=== PATIENT | male | born 1995 | race Caucasian/White ===

== ENCOUNTER 2018-03-25 18:26 | Emergency (ER) | payer BC, OTHER ==
--- NOTE | 2018-03-25 19:43 | ED ---
General Adult HPI - General Source: patient, police, RN notes reviewed Mode of arrival: ambulatory Limitations: no limitations <Mikal Nguyen - Last Filed: 03/25/18 22:23> <Jesus Ayala - Last Filed: 03/27/18 20:44> - General Chief complaint: Psychiatric Symptoms Stated complaint: mental Health Time Seen by Provider: 03/25/18 19:06 - History of Present Illness Initial comments: Patient's a 23-year-old male presented to the emergency room today by police for a psychiatric evaluation. Patient does admit to feeling somewhat down earlier today. He states he sent a text message to his . He states he does not remember what he's sent. Patient's did call police because in the text message it talked about him committing suicide. Police proceeded to his home picked him up and brought him here for psychiatric evaluation. Patient states he does not see a therapist or counselor. She is not on any medications. States he has no intentions of hurting himself. Since he has a 6- year-old son at home. Denies any homicidal thoughts or plans. Denies any visual or auditory hallucinations. Patient denies any other complaints. Patient denies any recent fever, chills, shortness of breath, chest pain, back pain, abdominal pain, nausea or vomiting, numbness or tingling, headaches or visual changes, or any other complaints. (Mikal Nguyen) - Related Data Home Medications Medication Instructions Recorded Confirmed No Known Home Medications 03/25/18 03/25/18 Allergies Allergy/AdvReac Type Severity Reaction Status Date / Time cephalexin monohydrate Allergy Rash/Hives Verified 03/25/18 19:29 [From Keflex] Review of Systems ROS Other: All systems not noted in ROS Statement are negative. <Mikal Nguyen - Last Filed: 03/25/18 22:23> ROS Other: All systems not noted in ROS Statement are negative. <Jesus Ayala - Last Filed: 03/27/18 20:44> ROS Statement: Those systems with pertinent positive or pertinent negative responses have been documented in the HPI. Past Medical History Past Medical History: No Reported History, Osteoarthritis (OA) History of Any Multi-Drug Resistant Organisms: None Reported Additional Past Surgical History / Comment(s): bilateral leg rods, osteogenisis imperfecta Past Psychological History: No Psychological Hx Reported Smoking Status: Never smoker Past Alcohol Use History: None Reported Past Drug Use History: None Reported <Mikal Nguyen - Last Filed: 03/25/18 22:23> General Exam Limitations: no limitations <Cory Nguyenony - Last Filed: 03/25/18 22:23> <JamieJesus Anam - Last Filed: 03/27/18 20:44> - General Exam Comments Initial Comments: General: The patient is awake and alert, in no distress, and does not appear acutely ill. Eye: Pupils are equal, round and reactive to light, extra-ocular movements are intact. No nystagmus. There is normal conjunctiva bilaterally. No signs of icterus. Ears, nose, mouth and throat: There are moist mucous membranes and no oral lesions. Neck: The neck is supple, there is no tenderness or JVD. Cardiovascular: There is a regular rate and rhythm. No murmur, rub or gallop is appreciated. Respiratory: Lungs are clear to auscultation, respirations are non-labored, breath sounds are equal. No wheezes, stridor, rales, or rhonchi. Musculoskeletal: Normal ROM, no tenderness. Strength 5/5. Sensation intact. Pulses equal bilaterally 2+. Neurological: A&O x 3. CN II-XII intact, There are no obvious motor or sensory deficits. Coordination appears grossly intact. Speech is normal. Skin: Skin is warm and dry and no rashes or lesions are noted. Psychiatric: Cooperative (Mikal Nguyen) Vital Signs 03/25/18 03/25/18 03/25/18 18:39 19:09 22:22 Temperature 99.9 F H Pulse Rate 100 Respiratory 18 18 16 Rate Blood Pressure 133/85 O2 Sat by Pulse 97 Oximetry 03/25/18 03/25/18 03/26/18 23:34 23:59 05:00 Temperature Pulse Rate Respiratory 16 18 18 Rate Blood Pressure O2 Sat by Pulse Oximetry 03/26/18 03/26/18 03/26/18 06:35 07:17 08:37 Temperature 97.2 F L Pulse Rate 74 Respiratory 17 18 19 Rate Blood Pressure 111/54 O2 Sat by Pulse 98 Oximetry 03/26/18 03/26/18 11:23 12:35 Temperature 97.9 F 97.9 F Pulse Rate 95 82 Respiratory 16 18 Rate Blood Pressure 117/56 118/56 O2 Sat by Pulse 98 98 Oximetry Medical Decision Making <Mikal Nguyen - Last Filed: 03/25/18 22:23> - Lab Data Result diagrams: 03/25/18 22:21 03/25/18 22:21 <Jesus Ayala - Last Filed: 03/27/18 20:44> - Medical Decision Making Patient's been seen here the emergency room by [facility]. Recommended patient be admitted inpatient. Patient was petitioned and seen by attending physician Dr. Ayala who completed cert. Patient will be transferred to an inpatient facility. (Mikal Nguyen) Resident/PA attestation: I, Dr. Jesus Ayala, personally saw and examined the patient. I have reviewed and agree with the resident/PA findings, including all diagnostic interpretations and treatment plans as written unless otherwise stated. I was present for the jj portions of any procedures performed and inclusive time noted for any critical care statement. (Jesus Ayala) - Lab Data Lab Results 03/25/18 03/25/18 03/25/18 Range/Units 21:15 21:15 22:21 WBC 9.6 (3.8-10.6) k/uL RBC 5.22 (4.30-5.90) m/uL Hgb 15.2 (13.0-17.5) gm/dL Hct 45.4 (39.0-53.0) % MCV 87.0 (80.0-100.0) fL MCH 29.1 (25.0-35.0) pg MCHC 33.5 (31.0-37.0) g/dL RDW 13.4 (11.5-15.5) % Plt Count 256 (150-450) k/uL Neutrophils % 67 % Lymphocytes % 25 % Monocytes % 5 % Eosinophils % 1 % Basophils % 0 % Neutrophils # 6.5 (1.3-7.7) k/uL Lymphocytes # 2.4 (1.0-4.8) k/uL Monocytes # 0.4 (0-1.0) k/uL Eosinophils # 0.1 (0-0.7) k/uL Basophils # 0.0 (0-0.2) k/uL Sodium (137-145) mmol/L Potassium (3.5-5.1) mmol/L Chloride (98-107) mmol/L Carbon Dioxide (22-30) mmol/L Anion Gap mmol/L BUN (9-20) mg/dL Creatinine (0.66-1.25) mg/dL Est GFR (CKD-EPI)AfAm (>60 ml/min/1.73 sqM) Est GFR (CKD-EPI)NonAf (>60 ml/min/1.73 sqM) Glucose (74-99) mg/dL Calcium (8.4-10.2) mg/dL Total Bilirubin (0.2-1.3) mg/dL AST (17-59) U/L ALT (21-72) U/L Alkaline Phosphatase (38-126) U/L Total Protein (6.3-8.2) g/dL Albumin (3.5-5.0) g/dL Urine Color Yellow Urine Appearance Clear (Clear) Urine pH 6.5 (5.0-8.0) Ur Specific [place] 1.022 (1.001-1.035) Urine Protein Negative (Negative) Urine Glucose (UA) Negative (Negative) Urine Ketones Negative (Negative) Urine Blood Negative (Negative) Urine Nitrite Negative (Negative) Urine Bilirubin Negative (Negative) Urine Urobilinogen <2.0 (<2.0) mg/dL Ur Leukocyte Esterase Negative (Negative) Urine Opiates Screen Not Detected (NotDetected) Ur Oxycodone Screen Not Detected (NotDetected) Urine Methadone Screen Not Detected (NotDetected) Ur Propoxyphene Screen Not Detected (NotDetected) Ur Barbiturates Screen Not Detected (NotDetected) U Tricyclic Antidepress Not Detected (NotDetected) Ur Phencyclidine Scrn Not Detected (NotDetected) Ur Amphetamines Screen Not Detected (NotDetected) U Methamphetamines Scrn Not Detected (NotDetected) U Benzodiazepines Scrn Not Detected (NotDetected) Urine Cocaine Screen Not Detected (NotDetected) U Marijuana (THC) Screen Not Detected (NotDetected) 03/25/18 Range/Units 22:21 WBC (3.8-10.6) k/uL RBC (4.30-5.90) m/uL Hgb (13.0-17.5) gm/dL Hct (39.0-53.0) % MCV (80.0-100.0) fL MCH (25.0-35.0) pg MCHC (31.0-37.0) g/dL RDW (11.5-15.5) % Plt Count (150-450) k/uL Neutrophils % % Lymphocytes % % Monocytes % % Eosinophils % % Basophils % % Neutrophils # (1.3-7.7) k/uL Lymphocytes # (1.0-4.8) k/uL Monocytes # (0-1.0) k/uL Eosinophils # (0-0.7) k/uL Basophils # (0-0.2) k/uL Sodium 140 (137-145) mmol/L Potassium 4.1 (3.5-5.1) mmol/L Chloride 108 H (98-107) mmol/L Carbon Dioxide 26 (22-30) mmol/L Anion Gap 6 mmol/L BUN 12 (9-20) mg/dL Creatinine 0.80 (0.66-1.25) mg/dL Est GFR (CKD-EPI)AfAm >90 (>60 ml/min/1.73 sqM) Est GFR (CKD-EPI)NonAf >90 (>60 ml/min/1.73 sqM) Glucose 91 (74-99) mg/dL Calcium 9.1 (8.4-10.2) mg/dL Total Bilirubin 0.4 (0.2-1.3) mg/dL AST 20 (17-59) U/L ALT 34 (21-72) U/L Alkaline Phosphatase 73 (38-126) U/L Total Protein 5.8 L (6.3-8.2) g/dL Albumin 3.5 (3.5-5.0) g/dL Urine Color Urine Appearance (Clear) Urine pH (5.0-8.0) Ur Specific [place] (1.001-1.035) Urine Protein (Negative) Urine Glucose (UA) (Negative) Urine Ketones (Negative) Urine Blood (Negative) Urine Nitrite (Negative) Urine Bilirubin (Negative) Urine Urobilinogen (<2.0) mg/dL Ur Leukocyte Esterase (Negative) Urine Opiates Screen (NotDetected) Ur Oxycodone Screen (NotDetected) Urine Methadone Screen (NotDetected) Ur Propoxyphene Screen (NotDetected) Ur Barbiturates Screen (NotDetected) U Tricyclic Antidepress (NotDetected) Ur Phencyclidine Scrn (NotDetected) Ur Amphetamines Screen (NotDetected) U Methamphetamines Scrn (NotDetected) U Benzodiazepines Scrn (NotDetected) Urine Cocaine Screen (NotDetected) U Marijuana (THC) Screen (NotDetected) Disposition Is patient prescribed a controlled substance at d/c from ED?: No Time of Disposition: 22:16 <Mikal Nguyen - Last Filed: 03/25/18 22:23> <Jesus Ayala - Last Filed: 03/27/18 20:44> Clinical Impression: Suicidal ideation Disposition: TRANSFER TO PSYCH HOSP/UNIT Condition: Stable Referrals: Hira Ward MD [Primary Care Provider] - 1-2 days
[2018-03-25 21:57] LABS: Amphetamine Screen,Urine Not Detected (NotDetected); Barbiturate Screen,Urine Not Detected (NotDetected); Benzodiazepines Screen,Urine Not Detected (NotDetected); Cocaine Screen,Urine Not Detected (NotDetected); Methadone Screen, Urine Not Detected (NotDetected); Opiate Screen,Urine Not Detected (NotDetected); Oxycodone Screen, Urine Not Detected (NotDetected); Phencyclidine Screen,Urine Not Detected (NotDetected); Tricyclic Antidepressant,Urine Not Detected (NotDetected); Urn Cannabinoid Scrn Not Detected (NotDetected)
[2018-03-25 22:34] LABS: Appearance,Urine Clear (Clear); Bilirubin,Urine Negative (Negative); Blood,Urine Negative (Negative); Color,Urine Yellow; Glucose,Urine (UA) Negative (Negative); Ketones,Urine Negative (Negative); Leukocyte Esterase,Urine Negative (Negative); Nitrite,Urine Negative (Negative); PH, Urine 6.5 (5.0-8.0); Protein,Urine Negative (Negative); Specific Gravity,Urine 1.022 (1.001-1.035); Urobilinogen,Urine <2.0 mg/dL (<2.0)
[2018-03-25 22:59] LABS: Basophils % (A) 0 %; Eosinophils # (A) 0.1 k/uL (0-0.7); Eosinophils % (A) 1 %; HCT 45.4 % (39.0-53.0); HGB 15.2 gm/dL (13.0-17.5); Lymphocytes # (A) 2.4 k/uL (1.0-4.8); Lymphocytes % (A) 25 %; MCH 29.1 pg (25.0-35.0); MCHC 33.5 g/dL (31.0-37.0); Mean Platelet Volume 7.4; Monocytes # (A) 0.4 k/uL (0-1.0); Monocytes % (A) 5 %; Neutrophils # (A) 6.5 k/uL (1.3-7.7); Neutrophils % (A) 67 %; Platelet Count 256 k/uL (150-450); RBC 5.22 m/uL (4.30-5.90); RDW 13.4 % (11.5-15.5); WBC 9.6 k/uL (3.8-10.6)
[2018-03-25 23:08] LABS: ALT 34 U/L (21-72); AST 20 U/L (17-59); Albumin 3.5 g/dL (3.5-5.0); Alkaline Phosphatase 73 U/L (38-126); Anion Gap 6 mmol/L; Blood Urea Nitrogen 12 mg/dL (9-20); Calcium 9.1 mg/dL (8.4-10.2); Carbon Dioxide 26 mmol/L (22-30); Chloride 108 mmol/L (98-107); Glucose 91 mg/dL (74-99); Potassium 4.1 mmol/L (3.5-5.1); Sodium 140 mmol/L (137-145); Total Bilirubin 0.4 mg/dL (0.2-1.3); Total Protein 5.8 g/dL (6.3-8.2)
[2018-03-26 11:25] VITALS: TEMP 97.9
[2018-03-26 12:44] VITALS: BP 118/56; PULSE 82; RESP 18
== END 2018-03-26 12:35 ==
LOC: EC 18:26
DX: R45.851 Suicidal ideations (principal); Z88.1 Allergy status to other antibiotic agents
CPT/HCPCS: 36415; 80053; 80306; 81003; 82075; 85025; 99284

== ENCOUNTER → 2018-05-15 | Outpatient (CLI) | payer OTHER ==
--- NOTE | 2018-05-15 12:33 | XR ---
Right hand and right wrist HISTORY: Right hand and wrist pain, trauma 3 views of the right hand and 4 views of the right wrist Bone mineralization, joint spaces and alignment are maintained. IMPRESSION: No fracture or dislocation.
== END | disposition home or self-care (01) ==
LOC: RADXRMAIN 10:24
PROVIDERS: ATTEND Emergency Medicine
DX: M65.841 Other synovitis and tenosynovitis, right hand (principal)

== ENCOUNTER 2018-06-20 21:33 | Emergency (ER) | payer BC ==
[2018-06-20 23:05] LABS: HCT 44.8 % (39.0-53.0); HGB 14.9 gm/dL (13.0-17.5); MCH 29.9 pg (25.0-35.0); MCHC 33.2 g/dL (31.0-37.0); Mean Platelet Volume 7.7; Platelet Count 194 k/uL (150-450); RBC 4.98 m/uL (4.30-5.90); RDW 13.5 % (11.5-15.5); WBC 8.2 k/uL (3.8-10.6)
[2018-06-20 23:20] LABS: Amphetamine Screen,Urine Not Detected (NotDetected); Barbiturate Screen,Urine Not Detected (NotDetected); Benzodiazepines Screen,Urine Not Detected (NotDetected); Cocaine Screen,Urine Not Detected (NotDetected); Methadone Screen, Urine Not Detected (NotDetected); Opiate Screen,Urine Not Detected (NotDetected); Oxycodone Screen, Urine Not Detected (NotDetected); Phencyclidine Screen,Urine Not Detected (NotDetected); Tricyclic Antidepressant,Urine Not Detected (NotDetected); Urn Cannabinoid Scrn Not Detected (NotDetected)
[2018-06-20 23:23] LABS: ALT 34 U/L (21-72); AST 20 U/L (17-59); Albumin 3.7 g/dL (3.5-5.0); Alkaline Phosphatase 66 U/L (38-126); Anion Gap 7 mmol/L; Blood Urea Nitrogen 14 mg/dL (9-20); Calcium 9.2 mg/dL (8.4-10.2); Carbon Dioxide 25 mmol/L (22-30); Chloride 107 mmol/L (98-107); Glucose 145 mg/dL (74-99); Potassium 3.7 mmol/L (3.5-5.1); Sodium 139 mmol/L (137-145); Total Bilirubin 0.6 mg/dL (0.2-1.3)
--- NOTE | 2018-06-21 00:36 | ED ---
Psych HPI - General Chief Complaint: Psychiatric Symptoms Stated Complaint: mental health Time Seen by Provider: 06/20/18 21:54 Source: patient Mode of arrival: ambulatory - History of Present Illness Initial Comments: Sherwin is a 23-year-old male with a psychiatric history who is prescribed Abilify which he reports he has not been compliant with. Patient is brought to the ED today in police custody for evaluation of auditory hallucinations and suicidal thoughts. Patient reports that he has not been combined with his home medications. He reports that for the past few days he has began hearing voices. He reports that these voices have been very distressing and is been having suicidal thoughts. - Related Data Home Medications Medication Instructions Recorded Confirmed ARIPiprazole [Abilify] 10 mg PO DAILY 06/20/18 06/20/18 Allergies Allergy/AdvReac Type Severity Reaction Status Date / Time cephalexin monohydrate Allergy Rash/Hives Verified 06/20/18 22:06 [From [facility]] Review of Systems ROS Statement: Those systems with pertinent positive or pertinent negative responses have been documented in the HPI. ROS Other: All systems not noted in ROS Statement are negative. Past Medical History Past Medical History: No Reported History, Osteoarthritis (OA) History of Any Multi-Drug Resistant Organisms: None Reported Additional Past Surgical History / Comment(s): bilateral leg rods, osteogenisis imperfecta Past Psychological History: No Psychological Hx Reported Smoking Status: Never smoker Past Alcohol Use History: None Reported Past Drug Use History: None Reported General Exam - General Exam Comments Initial Comments: Physical Exam GENERAL: Patient is well-developed and well-nourished. Patient is nontoxic and well- hydrated and is in no distress. HENT: Normocephalic, Atraumatic. Poor dentition EYES: PERRL, EOMI PULMONARY: Unlabored respirations. No audible rales rhonchi or wheezing was noted. CARDIOVASCULAR: There is a regular rate and rhythm without any murmurs gallops or rubs. ABDOMEN: Soft and nontender with normal bowel sounds. SKIN: Skin is clear with no lesions or rashes and otherwise unremarkable. : Deferred NEUROLOGIC: Patient is alert and oriented x3. Moving all extremities spontaneously MUSCULOSKELETAL: Normal extremities with adequate strength and full range of motion. No lower extremity swelling or edema. No calf tenderness. PSYCHIATRIC: Depressed, suicidal Limitations: no limitations Limitations: no limitations Course Vital Signs 06/20/18 06/21/18 21:38 06:45 Temperature 97.8 F Pulse Rate 85 86 Respiratory 16 14 Rate Blood Pressure 133/89 116/69 O2 Sat by Pulse 99 98 Oximetry Medical Decision Making - Medical Decision Making Patient seen and evaluated, history is obtained from the patient, his significant other as well as the cook chili who brought him in Patient has a history of psychiatric illness, was hospitalized for approximately 2 weeks in January per the significant other at bedside. Patient calm and cooperative stating that he having auditory hallucinations and suicidal thoughts Patient petitioned by significant other A workup was ordered, EPS was consulted for evaluation EPS recommends inpatient evaluation. Patient is medically cleared for psychiatric hospitalization The patient rested comfortably throughout the night awaiting transfer - Lab Data Result diagrams: 06/20/18 22:46 06/20/18 22:46 Lab Results 06/20/18 06/20/18 06/20/18 Range/Units 22:46 22:46 22:46 WBC 8.2 (3.8-10.6) k/uL RBC 4.98 (4.30-5.90) m/uL Hgb 14.9 (13.0-17.5) gm/dL Hct 44.8 (39.0-53.0) % MCV 90.0 (80.0-100.0) fL MCH 29.9 (25.0-35.0) pg MCHC 33.2 (31.0-37.0) g/dL RDW 13.5 (11.5-15.5) % Plt Count 194 (150-450) k/uL Sodium 139 (137-145) mmol/L Potassium 3.7 (3.5-5.1) mmol/L Chloride 107 (98-107) mmol/L Carbon Dioxide 25 (22-30) mmol/L Anion Gap 7 mmol/L BUN 14 (9-20) mg/dL Creatinine 0.89 (0.66-1.25) mg/dL Est GFR (CKD-EPI)AfAm >90 (>60 ml/min/1.73 sqM) Est GFR (CKD-EPI)NonAf >90 (>60 ml/min/1.73 sqM) Glucose 145 H (74-99) mg/dL Calcium 9.2 (8.4-10.2) mg/dL Total Bilirubin 0.6 (0.2-1.3) mg/dL AST 20 (17-59) U/L ALT 34 (21-72) U/L Alkaline Phosphatase 66 (38-126) U/L Total Protein 6.0 L (6.3-8.2) g/dL Albumin 3.7 (3.5-5.0) g/dL Urine Opiates Screen Not Detected (NotDetected) Ur Oxycodone Screen Not Detected (NotDetected) Urine Methadone Screen Not Detected (NotDetected) Ur Propoxyphene Screen Not Detected (NotDetected) Ur Barbiturates Screen Not Detected (NotDetected) U Tricyclic Antidepress Not Detected (NotDetected) Ur Phencyclidine Scrn Not Detected (NotDetected) Ur Amphetamines Screen Not Detected (NotDetected) U Methamphetamines Scrn Not Detected (NotDetected) U Benzodiazepines Scrn Not Detected (NotDetected) Urine Cocaine Screen Not Detected (NotDetected) U Marijuana (THC) Screen Not Detected (NotDetected) Disposition Clinical Impression: Depression, Suicidal ideation, Psychosis Disposition: TRANSFER TO PSYCH HOSP/UNIT Is patient prescribed a controlled substance at d/c from ED?: No Referrals: Adithya Borrero DO [Primary Care Provider] - 1-2 days
[2018-06-21 09:22] VITALS: BP 123/69; PULSE 88; RESP 18; TEMP 98.3
== END 2018-06-21 09:22 ==
LOC: EC 21:33
DX: F29 Unspecified psychosis not due to a substance or known physiological condition (principal); F32.9 Major depressive disorder, single episode, unspecified; R45.851 Suicidal ideations; Z79.899 Other long term (current) drug therapy; Z88.1 Allergy status to other antibiotic agents
CPT/HCPCS: 36415; 80053; 80306; 85027; 99285

== ENCOUNTER 2018-11-27 08:42 | Observation (INO) | payer BC ==
[2018-11-27] MEDS ORDERED: SODIUM CHLORIDE 0.9% 500 ML 500 ML IV STA (08:48)
--- NOTE | 2018-11-27 08:51 | ED ---
General Adult HPI - General Stated complaint: Overdose Time Seen by Provider: 11/27/18 08:44 - History of Present Illness Initial comments: Dictation was produced using [employer] dictation software. please excuse any grammatical, word or spelling errors. Chief Complaint: 23-year-old male past medical history of schizophrenia presents after suicidal attempt. History of Present Illness: Patient is a 23-year-old male. Approximately 6:30 AM patient took between 10 and 15 pills of Abilify. this is his usual medication. Patient states he wants to kill himself because of too many personal stress. Patient denies any auditory or visual hallucinations. Patient denies any feeling like somebody is out to get him. Patient is severely depressed. Patient has been admitted to the hospital psychiatric [facility] at least 2-3 other times. Denies any complaints at this time. EMS reports that patient had stable vital signs upon initial evaluation. He did report a lot of suicidal comments. The ROS documented in this emergency department record has been reviewed and confirmed by me. Those systems with pertinent positive or negative responses have been documented in the HPI. All other systems are other negative and/or noncontributory. PHYSICAL EXAM: General Impression: Alert and oriented x3, not in acute distress HEENT: Normocephalic atraumatic, extra-ocular movements intact, pupils equal and reactive to light bilaterally, mucous membranes moist. Cardiovascular: Heart regular rate and rhythm, S1&S2 audible, no murmurs, rubs or gallops Chest: Lungs clear to auscultation bilaterally, no rhonchi, no wheeze, no rales Abdomen: Bowel sounds present, abdomen soft, non-tender, non-distended, no organomegaly Musculoskeletal: Pulses present and equal in all extremities, no peripheral edema Motor: no focal deficits noted Neurological: CN II-XII grossly intact, no focal motor or sensory deficits noted Skin: Intact with no visualized rashes Psych: Depressed mood, nontender and show speech ED course: 23-year-old male presents with suicidal attempt. At approximately 6:30 AM he took 5015 tabs of his Abilify medication in an attempt to overdose. Vital signs upon arrival are within acceptable limits. [facility] which was contacted recommend laboratory evaluation an 8 hour observation for medical clearance.Laboratory evaluation obtained. CBC, metabolic panel, urine drug screen is unremarkable. Patient observed in emergency department. He has stable vital signs. Upon reevaluation however he is very sleepy, however arousable which is likely secondary to the Abilify. Given patient's degree of symptoms we will plan to have coppola admitted under cardiac monitoring for signs of possible worsening overdose. The patient should be on consult given that patient had suicidal attempt. EKG interpretation: Ventricular rate 81, VT interval 176, normal sinus rhythm, QRS 94, QTC 439. No VT prolongation, no QTC prolongation, no ST or T-wave changes noted. . Overall, this EKG is unremarkable - Related Data Home Medications Medication Instructions Recorded Confirmed ARIPiprazole [Abilify] 10 mg PO DAILY 06/20/18 06/20/18 Allergies Allergy/AdvReac Type Severity Reaction Status Date / Time cephalexin monohydrate Allergy Rash/Hives Verified 06/20/18 22:06 [From [facility]] Review of Systems ROS Statement: Those systems with pertinent positive or pertinent negative responses have been documented in the HPI. ROS Other: All systems not noted in ROS Statement are negative. Past Medical History Past Medical History: No Reported History, Osteoarthritis (OA) History of Any Multi-Drug Resistant Organisms: None Reported Additional Past Surgical History / Comment(s): bilateral leg rods, osteogenisis imperfecta Past Psychological History: No Psychological Hx Reported Smoking Status: Never smoker Past Alcohol Use History: None Reported Past Drug Use History: None Reported Course Vital Signs 11/27/18 11/27/18 09:00 09:38 Temperature 98.5 F Pulse Rate 90 71 Respiratory 16 18 Rate Blood Pressure 123/87 O2 Sat by Pulse 96 96 Oximetry Medical Decision Making - Lab Data Result diagrams: 11/27/18 09:15 11/27/18 09:15 Lab Results 11/27/18 11/27/18 11/27/18 Range/Units 09:15 09:15 09:15 WBC 7.3 (3.8-10.6) k/uL RBC 5.29 (4.30-5.90) m/uL Hgb 15.4 (13.0-17.5) gm/dL Hct 47.7 (39.0-53.0) % MCV 90.1 (80.0-100.0) fL MCH 29.1 (25.0-35.0) pg MCHC 32.3 (31.0-37.0) g/dL RDW 14.4 (11.5-15.5) % Plt Count 258 (150-450) k/uL Neutrophils % 67 % Lymphocytes % 24 % Monocytes % 5 % Eosinophils % 2 % Basophils % 1 % Neutrophils # 4.9 (1.3-7.7) k/uL Lymphocytes # 1.7 (1.0-4.8) k/uL Monocytes # 0.4 (0-1.0) k/uL Eosinophils # 0.1 (0-0.7) k/uL Basophils # 0.0 (0-0.2) k/uL Sodium 141 (137-145) mmol/L Potassium 4.2 (3.5-5.1) mmol/L Chloride 104 (98-107) mmol/L Carbon Dioxide 28 (22-30) mmol/L Anion Gap 9 mmol/L BUN 14 (9-20) mg/dL Creatinine 0.94 (0.66-1.25) mg/dL Est GFR (CKD-EPI)AfAm >90 (>60 ml/min/1.73 sqM) Est GFR (CKD-EPI)NonAf >90 (>60 ml/min/1.73 sqM) Glucose 89 (74-99) mg/dL Calcium 9.5 (8.4-10.2) mg/dL Phosphorus 4.1 (2.5-4.5) mg/dL Magnesium 2.0 (1.6-2.3) mg/dL Total Bilirubin 0.6 (0.2-1.3) mg/dL AST 21 (17-59) U/L ALT 39 (21-72) U/L Alkaline Phosphatase 98 (38-126) U/L Total Protein 7.4 (6.3-8.2) g/dL Albumin 4.4 (3.5-5.0) g/dL Salicylates <1.0 mg/dL Urine Opiates Screen Not Detected (NotDetected) Ur Oxycodone Screen Not Detected (NotDetected) Urine Methadone Screen Not Detected (NotDetected) Ur Propoxyphene Screen Not Detected (NotDetected) Acetaminophen <10.0 ug/mL Ur Barbiturates Screen Not Detected (NotDetected) U Tricyclic Antidepress Not Detected (NotDetected) Ur Phencyclidine Scrn Not Detected (NotDetected) Ur Amphetamines Screen Not Detected (NotDetected) U Methamphetamines Scrn Not Detected (NotDetected) U Benzodiazepines Scrn Not Detected (NotDetected) Urine Cocaine Screen Not Detected (NotDetected) U Marijuana (THC) Screen Detected H (NotDetected) Serum Alcohol <10 mg/dL Disposition Clinical Impression: Overdose Disposition: ADMITTED IP TO THIS [facility] Condition: Fair Referrals: Adithya Borrero DO [Primary Care Provider] - 1-2 days Decision Time: 10:43
[2018-11-27 09:51] LABS: Basophils % (A) 1 %; Eosinophils # (A) 0.1 k/uL (0-0.7); Eosinophils % (A) 2 %; HCT 47.7 % (39.0-53.0); HGB 15.4 gm/dL (13.0-17.5); Lymphocytes # (A) 1.7 k/uL (1.0-4.8); Lymphocytes % (A) 24 %; MCH 29.1 pg (25.0-35.0); MCHC 32.3 g/dL (31.0-37.0); MCV 90.1 fL (80.0-100.0); Mean Platelet Volume 8.1; Monocytes # (A) 0.4 k/uL (0-1.0); Monocytes % (A) 5 %; Neutrophils # (A) 4.9 k/uL (1.3-7.7); Neutrophils % (A) 67 %; Platelet Count 258 k/uL (150-450); RBC 5.29 m/uL (4.30-5.90); RDW 14.4 % (11.5-15.5); WBC 7.3 k/uL (3.8-10.6)
[2018-11-27 10:23] LABS: Amphetamine Screen,Urine Not Detected (NotDetected); Barbiturate Screen,Urine Not Detected (NotDetected); Benzodiazepines Screen,Urine Not Detected (NotDetected); Cocaine Screen,Urine Not Detected (NotDetected); Methadone Screen, Urine Not Detected (NotDetected); Opiate Screen,Urine Not Detected (NotDetected); Oxycodone Screen, Urine Not Detected (NotDetected); Phencyclidine Screen,Urine Not Detected (NotDetected); Tricyclic Antidepressant,Urine Not Detected (NotDetected); Urn Cannabinoid Scrn Detected (NotDetected)
[2018-11-27 10:30] LABS: ALT 39 U/L (21-72); AST 21 U/L (17-59); Acetaminophen <10.0 ug/mL; Albumin 4.4 g/dL (3.5-5.0); Alcohol <10 mg/dL; Alkaline Phosphatase 98 U/L (38-126); Anion Gap 9 mmol/L; Blood Urea Nitrogen 14 mg/dL (9-20); Calcium 9.5 mg/dL (8.4-10.2); Carbon Dioxide 28 mmol/L (22-30); Chloride 104 mmol/L (98-107); Glucose 89 mg/dL (74-99); Phosphorus 4.1 mg/dL (2.5-4.5); Potassium 4.2 mmol/L (3.5-5.1); Salicylate <1.0 mg/dL; Sodium 141 mmol/L (137-145); Total Bilirubin 0.6 mg/dL (0.2-1.3); Total Protein 7.4 g/dL (6.3-8.2)
[2018-11-27] MEDS ORDERED: NALOXONE 0.4 MG/ML 1 ML VIAL IV PRN (10:44)
[2018-11-27] MEDS: SODIUM CHLORIDE 0.9% 1,000 ML IV SCH (12:41)
--- NOTE | 2018-11-27 19:28 | HP ---
HISTORY AND PHYSICAL DATE OF SERVICE: 11/27/2018 This 23-year-old gentleman who had a past medical history of multiple medical problems including DJD, history of imperfecta, depression, schizophrenia being followed by Dr. Lita Borrero in the outpatient setting apparently took 10-15 tablets of Abilify this morning at around 6:30, 10 mg Abilify. Subsequently, patient stated that patient wanted to kill himself and had suicidal ideations. Patient taken to [facility] and admitted to the hospital for further evaluation and treatment. The patient is found to be drowsy at this time and admitted to the medical floor for further evaluation and treatment. The urine THC was positive. Currently the patient unable to give a coherent history because the patient is stuporous. Most of the history taken from my discussion with staff and review of chart at this time. PAST MEDICAL HISTORY: Of osteogenesis imperfecta, history of adenoidectomy, tonsillectomy, depression, schizophrenia. MEDICATIONS ARE: Home medications are: Abilify 10 mg daily. ALLERGIES: KEFLEX. FAMILY HISTORY: History of coronary artery disease, diabetes, hypertension, myocardial infarction. Guzman's Palsy. SOCIAL HISTORY: History of alcohol, THC, previous history of smoking. REVIEW OF SYSTEMS: Could not be taken at length because the patient is stuporous state. PHYSICAL EXAM: Pulse 68, blood pressure 112/70, respiration 18, temperature 98.8, pulse ox 98% on room air. HEENT: Conjunctivae normal. Neck: No jugular venous distention. Cardiovascular: S1, S2 muffled. Respirations: Breath sounds diminished in the bases. A few scattered rhonchi and crackles. ABDOMEN: Soft, nontender. No mass palpable. LEGS: No edema. No swelling. NERVOUS SYSTEM: Higher functions as mentioned earlier. Otherwise, full exam is not possible. The pupils are normal. Skin: No ulcers. Joints: No active deforming arthropathy. LABS: CBC and CMP within normal limits. ASSESSMENT: 1. Change in mental status possible acute metabolic toxic encephalopathy possibly drug induced secondary to Abilify overdose. 2. Possible Abilify overdose with possible suicidal ideations. 3. Possible depression. 4. Osteogenesis imperfecta history. 5. History of migraine. 6. History of cellulitis. 7. History of schizophrenia. 8. History of nicotine dependence. 9. History of THC. 10.FULL CODE. RECOMMENDATIONS AND DISCUSSION: In this 23-year-old gentleman who presented with multiple complex medical issues, we will monitor the patient closely. Continue the current medications, management and symptomatic treatment. Neuro checks and we will hold the Abilify for now. Symptomatic treatment. IV fluids and psychiatric consultation. Once the patient's sensorium improves, the patient may be able to be transferred to the psych floor for further evaluation and treatment. Otherwise, prognosis guarded. Further recommendations to follow. A copy of dictation being forwarded to Dr. Lita Borrero who is the primary care physician. MMANDREAL / ALEXN: [id number] / MTDD
[2018-11-28 08:26] LABS: Basophils % (A) 0 %; Eosinophils # (A) 0.1 k/uL (0-0.7); Eosinophils % (A) 2 %; HCT 47.9 % (39.0-53.0); HGB 15.6 gm/dL (13.0-17.5); Lymphocytes # (A) 1.7 k/uL (1.0-4.8); Lymphocytes % (A) 24 %; MCH 28.8 pg (25.0-35.0); MCHC 32.5 g/dL (31.0-37.0); MCV 88.7 fL (80.0-100.0); Monocytes # (A) 0.4 k/uL (0-1.0); Monocytes % (A) 6 %; Neutrophils # (A) 4.6 k/uL (1.3-7.7); Neutrophils % (A) 66 %; Platelet Count 205 k/uL (150-450); RBC 5.41 m/uL (4.30-5.90); RDW 13.5 % (11.5-15.5)
[2018-11-28 08:35] LABS: Anion Gap 10 mmol/L; Blood Urea Nitrogen 12 mg/dL (9-20); Calcium 9.6 mg/dL (8.4-10.2); Carbon Dioxide 24 mmol/L (22-30); Chloride 107 mmol/L (98-107); Glucose 84 mg/dL (74-99); Potassium 4.6 mmol/L (3.5-5.1); Sodium 141 mmol/L (137-145)
--- NOTE | 2018-11-28 11:56 | P.CN ---
Psychiatric Consult - . Consult date: 11/28/18 Consult:: 11/27/18 14:18 questionable suicide attempt Assessment and Plan Assessment: Chief Complaint: 23-year-old male past medical history of schizophrenia presents after suicidal attempt. History of Present Illness: Patient is a 23-year-old male. Approximately 6:30 AM patient took between 10 and 15 pills of Abilify. this is his usual medication. Patient states he wants to kill himself because of too many personal stress. Patient denies any auditory or visual hallucinations. Patient denies any feeling like somebody is out to get him. Patient is severely depressed. Patient has been admitted to the hospital psychiatric [facility] at least 2-3 other times. Denies any complaints at this time. EMS reports that patient had stable vital signs upon initial evaluation. He did report a lot of suicidal comments. ED course: 23-year-old male presents with suicidal attempt. At approximately 6:30 AM he took 10-15 tabs of his Abilify medication in an attempt to overdose. Vital signs upon arrival are within acceptable limits. Pleasant which was contacted recommend laboratory evaluation an 8 hour observation for medical clearance.Laboratory evaluation obtained. CBC, metabolic panel, urine drug screen is unremarkable. Patient observed in emergency department. He has stable vital signs. Upon reevaluation however he is very sleepy, however arousable which is likely secondary to the Abilify. Given patient's degree of symptoms was admitted under cardiac monitoring for signs of possible worsening overdose. EKG interpretation: Ventricular rate 81, MI interval 176, normal sinus rhythm, QRS 94, QTC 439. No MI prolongation, no QTC prolongation, no ST or T-wave changes noted. . Overall, this EKG is unremarkable Psychopharmacology of Abilify: It has a half life 96 hours someone is not out of the ruiz for at least 3 more days and can affect his QTC since it is lipophilic, I was the primary utilities service investigator and clinical trials regarding this antipsychotic from [facility] [place]. - Related Data Home Medications Medication Instructions Recorded Confirmed ARIPiprazole [Abilify] 10 mg PO DAILY 06/20/18 06/20/18 Allergies Allergy/AdvReac Type Severity Reaction Status Date / Time cephalexin monohydrate Allergy Rash/Hives Verified 06/20/18 22:06 [From [employer]] Past Medical History Past Medical History: No Reported History, Osteoarthritis (OA) History of Any Multi-Drug Resistant Organisms: None Reported Additional Past Surgical History / Comment(s): bilateral leg rods, osteogenisis imperfecta Past Psychological History: schizoaffective disorder Smoking Status: Never smoker Past Alcohol Use History: None Reported Past Drug Use History: None Reported Mental Status Examination - this is a 23-year-old male who was accompanied by his at bedside. He is dressed in gown and laying in bed and is cooperative and responsive to questions. His speech and language are spontaneous. Attitude and behavior is cooperative. Mood is depressed anxious fearful and hopelessness. Affect is flat and blunted. Orientation is to person place time and situation whereby he admitted that he took an overdose do to he and his are in the middle of havinga discussion about divorce. Thought content is within normal.risk factors he is suicidal and had a plan and intent to carry out. Perception is within normal limits. Thought processes concrete circumstantial and tangential nature. His concentration and attention span is impaired per observation and interview with the patient. Recent memory and remote memory are within normal intelligence is below average. Judgment is poor. Insight is poor. Psychiatric impression: A application, clinical certification for involuntary psychiatric hospitalization is filled out and he needs to be transferred to the psychiatric unit so a second clinical service filled out and not allow him to sign in. When he usually checks in the hospital he stays about 7 days and stopped taking his medicine. diagnosis schizoaffective disorder. Thank you for the consult Ivan Lopez D.O. PhD (1) Schizoaffective disorder Current Visit: Yes Status: Acute Priority: High Code(s): F25.9 - SCHIZOAFFECTIVE DISORDER, UNSPECIFIED SNOMED Code(s): 64627587 (2) Overdose Current Visit: Yes Status: Acute Code(s): T50.901A - POISONING BY UNSP DRUG/MEDS/BIOL SUBST, ACCIDENTAL, INIT SNOMED Code(s): 49865005 Time with Patient: Less than 30
[2018-11-28 14:12] VITALS: BMI 34.4
[2018-11-28] MEDS: SODIUM CHLORIDE 0.9% 1,000 ML IV SCH (16:19)
[2018-11-28 20:31] VITALS: BP 164/82; PULSE 80; RESP 16; TEMP 97.9
--- NOTE | 2018-11-28 22:41 | DS ---
DISCHARGE SUMMARY DATE OF SERVICE: 11/28/2018. FINAL DIAGNOSES: 1. Change in mental status, possible acute metabolic toxic encephalopathy possibly secondary to drug induced secondary to Abilify overdose. 2. Possible Abilify overdose with suicidal ideations and depression. 4. History of migraines. 5. History of cellulitis. 6. History of schizophrenia. 7. History of nicotine dependence. 8. History of THC. 9. FULL CODE. DISCHARGE DISPOSITION: The patient is being discharged in stable condition with guarded prognosis. HISTORY OF PRESENT ILLNESS: This 23-year-old gentleman who presented with multiple medical problems being followed by Dr. Lita Borrero, admitted for suicidal ideations. The patient's change in mental status, treated symptomatically, improved significantly. PHYSICAL EXAMINATION: On exam, vital signs stable. Cardiovascular: S1, S2. Abdomen soft. Nervous system: No focal deficits. The patient is certified and the patient will be transferred to inpatient psych floor for further evaluation. Medically cleared. Continued management. Please refer to the MAR for current medications. MMODL / IJN: [id number] / MALENA
== END 2018-11-29 02:35 ==
LOC: EC 08:42 → 3SCARD 10:44 → 3NMEDONC 16:29
PROVIDERS: ADMIT Hospitalist; ATTEND Hospitalist
DX: R41.82 Altered mental status, unspecified (principal); R45.851 Suicidal ideations; F20.9 Schizophrenia, unspecified; F32.9 Major depressive disorder, single episode, unspecified; G43.909 Migraine, unspecified, not intractable, without status migrainosus; Q78.0 Osteogenesis imperfecta; Z79.899 Other long term (current) drug therapy; Z88.1 Allergy status to other antibiotic agents; Z86.59 Personal history of other mental and behavioral disorders; Z87.891 Personal history of nicotine dependence; Z87.2 Personal history of diseases of the skin and subcutaneous tissue; Z83.3 Family history of diabetes mellitus; Z82.49 Family history of ischemic heart disease and other diseases of the circulatory system; Z82.0 Family history of epilepsy and other diseases of the nervous system
CPT/HCPCS: 82075; 99285; 36415; 93005; 80053; 80048; 83735; 84100; 85025 ×2; 80306; 83520 ×2; 80320; G0378 ×4

== ENCOUNTER 2018-11-29 02:26 | Inpatient (IN) | payer BC, MEDICAID ==
[2018-11-29] MEDS ORDERED: MAG HYDROX/AL HYDROX/SIMETH 30 ML CUP PO PRN (03:23)
[2018-11-29] MEDS ORDERED: MAGNESIUM HYDROXIDE 2,400 MG/10 ML CUP PO PRN (03:23)
[2018-11-29] MEDS ORDERED: ACETAMINOPHEN TAB 325 MG TAB PO PRN (03:23)
[2018-11-29] MEDS ORDERED: LORazepam 1 MG TAB PO PRN (03:23)
[2018-11-29] MEDS ORDERED: ZIPRASIDONE 20 MG VIAL IM PRN (03:23)
[2018-11-29 03:25] VITALS: BMI 35.2
--- NOTE | 2018-11-29 17:59 | P.CONS ---
History of Present Illness - History of Present Illness this is a pleasant 23 years old male with no significant past medical history although he has some history of migraine before however he denies significant history.patient was admitted to the [facility] for resuscitation and acute psychosis. Medical consult has been asked for medical management. Patient denies chest pain or dyspnea. No change in urine or bowel habits. No fever. No abdominal pain. No nausea vomiting. He tolerates diet well. Review of Systems CONSTITUTIONAL: No fever, no malaise, no fatigue. HEENT: No recent visual problems or hearing problems. Denied any sore throat. CARDIOVASCULAR: No orthopnea, PND, no palpitations, no syncope. PULMONARY: No shortness of breath, no cough, no hemoptysis. GASTROINTESTINAL: No diarrhea, no nausea, no vomiting, no abdominal pain. Normoactive bowel sounds. NEUROLOGICAL: No headaches, no weakness, no numbness. HEMATOLOGICAL: Denies any bleeding or petechiae. GENITOURINARY: Denies any burning micturition, frequency, or urgency. MUSCULOSKELETAL/RHEUMATOLOGICAL: Denies any joint pain, swelling, or any muscle pain. ENDOCRINE: Denies any polyuria or polydipsia. Past Medical History Past Medical History: No Reported History, Osteoarthritis (OA) Additional Past Medical History / Comment(s): Osteogenesis imperfecta, migraines, multiple cellulitis bilateral legs, rods in bilat legs upper and lower legs History of Any Multi-Drug Resistant Organisms: None Reported Past Surgical History: Adenoidectomy, Tonsillectomy Additional Past Surgical History / Comment(s): bilateral legs with rods, occipital nerve blocks Past Anesthesia/Blood Transfusion Reactions: Postoperative Nausea & Vomiting (PONV) Past Psychological History: Depression, Schizophrenia Additional Psychological History / Comment(s): Pt states he is suicidal. Pt states he has a plan for suicide but states "don't want to talk about it." He states d/t too much stress in his life. Pt resides at home with his spouse. He is independent. He works at [employer]. Smoking Status: Former smoker Past Alcohol Use History: Occasional Additional Past Alcohol Use History / Comment(s): Pt started smoking as a teen and quit about 2013. He drinks alcohol on occasion. Past Drug Use History: Marijuana Additional Drug Use History / Comment(s): Pt smokes marijuana occasionally. - Past Family History Father Family Medical History: Coronary Artery Disease (CAD), Diabetes Mellitus, Hypertension, Myocardial Infarction (RI) Additional Family Medical History / Comment(s): Father had his first Mi at the age of 33 yrs. He is bipolar. He has had Guzman's Palsey. Mother Family Medical History: Hypertension Additional Family Medical History / Comment(s): Migraines Medications and Allergies Home Medications Medication Instructions Recorded Confirmed Type No Known Home Medications 11/29/18 11/29/18 History Allergies Allergy/AdvReac Type Severity Reaction Status Date / Time cephalexin monohydrate Allergy Rash/Hives Verified 11/29/18 03:58 [From [employer]] Physical Exam Vitals: Vital Signs Temp Pulse Resp BP Pulse Ox 11/29/18 03:18 97.1 F L 100 14 120/64 97 Intake and Output 11/29/18 11/29/18 11/29/18 06:59 14:59 22:59 Other: Weight 114.305 kg GENERAL: The patient is alert and oriented x3, not in any acute distress. Well developed, well nourished. HEENT: Pupils are round and equally reacting to light. EOMI. No scleral icterus. No conjunctival pallor. Normocephalic, atraumatic. No pharyngeal erythema. No thyromegaly. CARDIOVASCULAR: S1 and S2 present. No murmurs, rubs, or gallops. PULMONARY: Chest is clear to auscultation, no wheezing or crackles. ABDOMEN: Soft, nontender, nondistended, normoactive bowel sounds. No palpable organomegaly. MUSCULOSKELETAL: No joint swelling or deformity. EXTREMITIES: No cyanosis, clubbing, or pedal edema. NEUROLOGICAL: Gross neurological examination did not reveal any focal deficits. SKIN: No rashes. Results Labs: Abnormal Lab Results - Last 24 Hours (Table) 11/29/18 Range/Units 10:38 TSH 0.223 L (0.465-4.680) mIU/L Assessment and Plan Assessment: -agitation and psychosis, management as per primary site team -History of osteoarthritis, not an active issue -History of migraine, not an active issue Plan: this is a pleasant 23 years old male who presents with psychosis and other psychiatric illnesses which is managed as per primary dissecting Labs and medication were reviewed.. Continue same treatment. Continue with symptomatic treatment. Resume home medication. Monitor lytes and vitals. DVT and GI prophylaxis. Further recommendations of the clinical course of the patient DVT prophylaxis: Subcutaneous heparin thank you for consulting us.
--- NOTE | 2018-11-29 19:37 | P.HP ---
Psychiatric H&P - . H&P Date: 11/29/18 History & Physical: Allergies Allergy/AdvReac Type Severity Reaction Status Date / Time cephalexin monohydrate Allergy Rash/Hives Verified 11/29/18 03:58 [From Keflex] Vital Signs Temp 97.1 F L 11/29/18 03:18 Pulse 100 11/29/18 03:18 Resp 14 11/29/18 03:18 BP 120/64 11/29/18 03:18 Pulse Ox 97 11/29/18 03:18 Intake & Output 11/29/18 11/29/18 11/30/18 06:59 18:59 06:59 Weight 114.305 kg Laboratory Last Values TSH 0.223 mIU/L (0.465-4.680) L 11/29/18 10:38 11/29/18 19:34 Chief Complaint : Suicidal ideation HPI : Mr. Aggarwal is 23 yo Male with long h/o major depression admitted here secondary to worsening depression and suicidal ideation. He has been struggling with depression since young age. He has been suicidal in past. He reports hearing voices and seeing things. Reports taking Abilify in past which use to help him but he has been non complaint on his medications. PMH : Osteoarthritis Past Psych Hx: Depression Allergies : NKDA Legal Hx : None Abuse Hx : None Substance Abuse Hx : Marijuana every day Personal/Social Hx : Lives with his . Finished High school. Now work in factory. MSE : Alert, awake, Oriented x 4. Fair eye contact. Speech soft tone, Mood depressed and anxious . Affect mood congruent Has suicidal ideation. No psychoses. Attention fair. Intellect average. Insight/Judgement poor A/P: Major Depressive Disorder, severe recurrent with psychotic features Will resume Abilify and Lexapro. Will benefit from REEVES Abilify maintenna. . Supportive therapy provided.
[2018-11-29] MEDS ORDERED: ARIPiprazole IM 400 MG VIAL (NO COST) IM ONE (19:39)
[2018-11-29 20:31] LABS: Hemoglobin A1C 5.1 % (4.0-6.0)
[2018-11-29] MEDS: ESCITALOPRAM 10 MG TAB PO SCH (22:10)
[2018-11-29] MEDS: ARIPiprazole 5 MG TAB PO SCH (22:11)
[2018-11-30] MEDS: ESCITALOPRAM 10 MG TAB PO SCH (08:05)
[2018-11-30] MEDS: ARIPiprazole 5 MG TAB PO SCH (08:05)
--- NOTE | 2018-11-30 12:10 | P.PN ---
Subjective Progress Note Date: 11/30/18 Principal diagnosis: Major Depression with psychotic features Found him sitting in his room. Got his Abilify IM and now reports some pain at site. Reports feeling some what better butstill feeling depressed and down. Wants to get back to his life after getting fully treated. MSE : Alert, awake, Oriented x 4. Fair eye contact. Speech soft tone, Mood depressed and anxious . Affect mood congruent Has suicidal ideation. No psychoses. Attention fair. Intellect average. Insight/Judgement poor A/P: Major Depressive Disorder, severe recurrent with psychotic features Will continue to adjust medications accordingly. . Supportive therapy provided. Objective - Vital Signs Vital signs: Vital Signs Temp 99 F 11/30/18 06:41 Pulse 85 11/30/18 06:41 Resp 16 11/30/18 06:41 BP 123/68 11/30/18 06:41 Pulse Ox 97 11/29/18 03:18 Intake & Output 11/29/18 11/30/18 11/30/18 18:59 06:59 18:59 Weight 113.407 kg
[2018-11-30] MEDS ORDERED: ONDANSETRON 4 MG TAB PO PRN (20:24)
[2018-12-01] MEDS: ESCITALOPRAM 10 MG TAB PO SCH (08:11)
[2018-12-01] MEDS: ARIPiprazole 5 MG TAB PO SCH (08:11)
[2018-12-01] MEDS ORDERED: ARIPiprazole 2 MG TAB PO PRN (10:25)
[2018-12-01] MEDS ORDERED: HALOPERIDOL LACTATE 5 MG/ML 1 ML VIAL IM PRN (10:27)
--- NOTE | 2018-12-01 14:02 | P.PN ---
Subjective Progress Note Date: 12/01/18 Principal diagnosis: bipolar affective disorder with psychosis 12/01/2018: Chart reviewed, discussed in team today, and provided disposition and awaiting probate Court. Since he is on involuntary he will need to be followed up by community health mental health. When discussed today with the patient he feels much better since she's been on the Abilify long acting injectable medicine and denies any auditory visual hallucinations, depression is 3 out of 10, denies any suicidal homicidal ideation at the present time. However because of his impulsivity of attempting to kill himself we'll follow through with probate Court. Objective - Vital Signs Vital signs: Vital Signs Temp 98.5 F 12/01/18 06:29 Pulse 79 12/01/18 06:29 Resp 16 12/01/18 06:29 BP 119/68 12/01/18 06:29 Pulse Ox 97 11/29/18 03:18 Intake & Output 11/30/18 12/01/18 12/01/18 18:59 06:59 18:59 Weight 113.407 kg Assessment and Plan Assessment: Chief Complaint: 23-year-old male past medical history of schizophrenia presents after suicidal attempt. History of Present Illness: Patient is a 23-year-old male. Approximately 6:30 AM patient took between 10 and 15 pills of Abilify. this is his usual medication. Patient states he wants to kill himself because of too many personal stress. Patient denies any auditory or visual hallucinations. Patient denies any feeling like somebody is out to get him. Patient is severely depressed. Patient has been admitted to the hospital psychiatric [facility] at least 2-3 other times. Denies any complaints at this time. EMS reports that patient had stable vital signs upon initial evaluation. He did report a lot of suicidal comments. ED course: 23-year-old male presents with suicidal attempt. At approximately 6:30 AM he took 10-15 tabs of his Abilify medication in an attempt to overdose. Vital signs upon arrival are within acceptable limits. Pleasant which was contacted recommend laboratory evaluation an 8 hour observation for medical clearance.Laboratory evaluation obtained. CBC, metabolic panel, urine drug screen is unremarkable. Patient observed in emergency department. He has stable vital signs. Upon reevaluation however he is very sleepy, however arousable which is likely secondary to the Abilify. Given patient's degree of symptoms was admitted under cardiac monitoring for signs of possible worsening overdose. Past Medical History Past Medical History: No Reported History, Osteoarthritis (OA) History of Any Multi-Drug Resistant Organisms: None Reported Additional Past Surgical History / Comment(s): bilateral leg rods, osteogenisis imperfecta Past Psychological History: schizoaffective disorder Smoking Status: Never smoker Past Alcohol Use History: None Reported Past Drug Use History: None Reported Mental Status Examination - this is a 23-year-old male who was accompanied by his at bedside. He is dressed in gown and laying in bed and is cooperative and responsive to questions. His speech and language are spontaneous. Attitude and behavior is cooperative. Mood is depressed anxious fearful and hopelessness. Affect is flat and blunted. Orientation is to person place time and situation whereby he admitted that he took an overdose do to he and his are in the middle of havinga discussion about divorce. Thought content is within normal.risk factors he is suicidal and had a plan and intent to carry out. Perception is within normal limits. Thought processes concrete circumstantial and tangential nature. His concentration and attention span is impaired per observation and interview with the patient. Recent memory and remote memory are within normal intelligence is below average. Judgment is poor. Insight is poor. Psychiatric impression: A application, clinical certification for involuntary psychiatric hospitalization is filled out and he needs to be transferred to the psychiatric unit so a second clinical service filled out and not allow him to sign in. (1) Schizoaffective disorder Current Visit: No Status: Acute Priority: High Code(s): F25.9 - SCHIZOAFFECTIVE DISORDER, UNSPECIFIED SNOMED Code(s): 98974477 Plan: 12/01/2018: over the weekend that the Dr. Moreau used long acting Abilify 400 mg IM and will have to be injected on 12/21/2018. His diagnosis is really not schizophrenia it is bipolar affective disorder with acute psychosis. He keeps on relapsing because he has known mood stabilization and he is sporadically taking his Abilify. Depakote 250 mg was added for mood stabilization. His paperwork for admission to the psychiatric unit through probate court was sent today and awaiting for the defense attorney from the court to do his deferral. Usual 15 minute checks have been instituted and as usual protocol on 3 [facility] Time with Patient: Greater than 30
[2018-12-01] MEDS: cloNIDine HCL 0.1 MG TAB PO SCH ×2 (15:54→20:39)
[2018-12-01] MEDS: DIVALPROEX ER 250 MG TAB.ER.24H PO SCH (20:38)
[2018-12-02] MEDS: cloNIDine HCL 0.1 MG TAB PO SCH ×3 (08:14→20:50)
[2018-12-02] MEDS ORDERED: ARIPiprazole 10 MG TAB PO SCH (09:00)
[2018-12-02 13:07] LABS: T4, Free (Free Thyroxine) 1.27 ng/dL (0.78-2.19)
--- NOTE | 2018-12-02 13:48 | P.PN ---
Subjective Progress Note Date: 12/02/18 Principal diagnosis: bipolar affective disorder with psychosis 12/01/2018: Chart reviewed, discussed in team today, and provided disposition and awaiting probate Court. Since he is on involuntary he will need to be followed up by community mental health. When discussed today with the patient he feels much better since she's been on the Abilify long acting injectable medicine and denies any auditory visual hallucinations, depression is 3 out of 10, denies any suicidal homicidal ideation at the present time. However because of his impulsivity of attempting to kill himself we'll follow through with probate Court. 12/02/2018: Chart reviewed and discussed in team meeting and discussed disposition and now waiting for probate Court. Since he is on an involuntary own need to be followed by community mental health discussed about. His Depakote is stabilized his racing thoughts. Denies any suicidal or homicidal thoughts. 15 minute checks are being maintained and is compliant and adherent to protocol on mental health unit. Objective - Vital Signs Vital signs: Vital Signs Temp 98.0 F 12/02/18 06:20 Pulse 78 12/02/18 06:20 Resp 14 12/02/18 06:20 BP 111/65 12/02/18 06:20 Pulse Ox 97 11/29/18 03:18 Assessment and Plan Assessment: Chief Complaint: 23-year-old male past medical history of schizophrenia presents after suicidal attempt. History of Present Illness: Patient is a 23-year-old male. Approximately 6:30 AM patient took between 10 and 15 pills of Abilify. this is his usual medication. Patient states he wants to kill himself because of too many personal stress. Patient denies any auditory or visual hallucinations. Patient denies any feeling like somebody is out to get him. Patient is severely depressed. Patient has been admitted to the hospital psychiatric olivo at least 2-3 other times. Denies any complaints at this time. EMS reports that patient had stable vital signs upon initial evaluation. He did report a lot of suicidal comments. ED course: 23-year-old male presents with suicidal attempt. At approximately 6:30 AM he took 10-15 tabs of his Abilify medication in an attempt to overdose. Vital signs upon arrival are within acceptable limits. Pleasant which was contacted recommend laboratory evaluation an 8 hour observation for medical clearance.Laboratory evaluation obtained. CBC, metabolic panel, urine drug screen is unremarkable. Patient observed in emergency department. He has stable vital signs. Upon reevaluation however he is very sleepy, however arousable which is likely secondary to the Abilify. Given patient's degree of symptoms was admitted under cardiac monitoring for signs of possible worsening overdose. Past Medical History Past Medical History: No Reported History, Osteoarthritis (OA) History of Any Multi-Drug Resistant Organisms: None Reported Additional Past Surgical History / Comment(s): bilateral leg rods, osteogenisis imperfecta Past Psychological History: schizoaffective disorder Smoking Status: Never smoker Past Alcohol Use History: None Reported Past Drug Use History: None Reported Mental Status Examination - this is a 23-year-old male who was accompanied by his at bedside. He is dressed in gown and laying in bed and is cooperative and responsive to questions. His speech and language are spontaneous. Attitude and behavior is cooperative. Mood is depressed anxious fearful and hopelessness. Affect is flat and blunted. Orientation is to person place time and situation whereby he admitted that he took an overdose do to he and his are in the middle of havinga discussion about divorce. Thought content is within normal.risk factors he is suicidal and had a plan and intent to carry out. Perception is within normal limits. Thought processes concrete circumstantial and tangential nature. His concentration and attention span is impaired per observation and interview with the patient. Recent memory and remote memory are within normal intelligence is below average. Judgment is poor. Insight is poor. Psychiatric impression: A application, clinical certification for involuntary psychiatric hospitalization is filled out and he needs to be transferred to the psychiatric unit so a second clinical service filled out and not allow him to sign in. (1) Schizoaffective disorder Current Visit: No Status: Acute Priority: High Code(s): F25.9 - SCHIZOAFFECTIVE DISORDER, UNSPECIFIED SNOMED Code(s): 44481239 Plan: 12/01/2018: over the weekend that the Dr. Moreau used long acting Abilify 400 mg IM and will have to be injected on 12/21/2018. His diagnosis is really not schizophrenia it is bipolar affective disorder with acute psychosis. He keeps on relapsing because he has known mood stabilization and he is sporadically taking his Abilify. Depakote 250 mg was added for mood stabilization. His paperwork for admission to the psychiatric unit through probate court was sent today and awaiting for the billet checker from the court to do his deferral. Usual 15 minute checks have been instituted and as usual protocol on 3 [facility] 12/02/2018: Chart reviewed, discussed with nursing staff and team then meeting with social work and community mental health. Awaiting probate Court billet checker for deferral. Depakote 250 has had no side effects and has appeared to stabilize his mood. Usual 15 minute checks have been maintained as are the usual protocol for 3 [facility] Time with Patient: Less than 30
[2018-12-02 16:37] VITALS: RESP 16
[2018-12-02] MEDS: DIVALPROEX ER 250 MG TAB.ER.24H PO SCH (20:50)
[2018-12-03 06:36] VITALS: BP 119/70; PULSE 89; TEMP 97.6
[2018-12-03] MEDS: cloNIDine HCL 0.1 MG TAB PO SCH (09:09)
[2018-12-03] MEDS ORDERED: ARIPiprazole IM 400 MG VIAL (NO COST) IM ONE (15:08)
--- NOTE | 2018-12-03 15:12 | P.DS ---
Providers Date of admission: 11/29/18 02:41 Expected date of discharge: 12/03/18 Attending physician: Ivan Lopez DO Consults: 11/29/18 03:23 Consult Physician Routine Consulting Provider: Dieudonne Brewer Consult Reason/Comments: Medical Management Do you want consulting provider notified?: Yes, Notify in am Primary care physician: Adithya Borrero - Discharge Diagnosis(es) (1) Schizoaffective disorder Chief Complaint: 23-year-old male past medical history of schizophrenia presents after suicidal attempt. History of Present Illness: Patient is a 23-year-old male. Approximately 6:30 AM patient took between 10 and 15 pills of Abilify. this is his usual medication. Patient states he wants to kill himself because of too many personal stress. Patient denies any auditory or visual hallucinations. Patient denies any feeling like somebody is out to get him. Patient is severely depressed. Patient has been admitted to the hospital psychiatric [facility] at least 2-3 other times. Denies any complaints at this time. EMS reports that patient had stable vital signs upon initial evaluation. He did report a lot of suicidal comments. ED course: 23-year-old male presents with suicidal attempt. At approximately 6:30 AM he took 10-15 tabs of his Abilify medication in an attempt to overdose. Vital signs upon arrival are within acceptable limits. Pleasant which was contacted recommend laboratory evaluation an 8 hour observation for medical clearance.Laboratory evaluation obtained. CBC, metabolic panel, urine drug screen is unremarkable. Patient observed in emergency department. He has stable vital signs. Upon reevaluation however he is very sleepy, however arousable which is likely secondary to the Abilify. Given patient's degree of symptoms was admitted under cardiac monitoring for signs of possible worsening overdose. Past Medical History Past Medical History: No Reported History, Osteoarthritis (OA) History of Any Multi-Drug Resistant Organisms: None Reported Additional Past Surgical History / Comment(s): bilateral leg rods, osteogenisis imperfecta Past Psychological History: schizoaffective disorder Smoking Status: Never smoker Past Alcohol Use History: None Reported Past Drug Use History: None Reported Mental Status Examination - this is a 23-year-old male who was accompanied by his at bedside. He is dressed in gown and laying in bed and is cooperative and responsive to questions. His speech and language are spontaneous. Attitude and behavior is cooperative. Mood is depressed anxious fearful and hopelessness. Affect is flat and blunted. Orientation is to person place time and situation whereby he admitted that he took an overdose do to he and his are in the middle of havinga discussion about divorce. Thought content is within normal.risk factors he is suicidal and had a plan and intent to carry out. Perception is within normal limits. Thought processes concrete circumstantial and tangential nature. His concentration and attention span is impaired per observation and interview with the patient. Recent memory and remote memory are within normal intelligence is below average. Judgment is poor. Insight is poor. Psychiatric impression: A application, clinical certification for involuntary psychiatric hospitalization is filled out and he needs to be transferred to the psychiatric unit so a second clinical service filled out and not allow him to sign in. Plan: 12/01/2018: over the weekend that the Dr. Moreau used long acting Abilify 400 mg IM and will have to be injected on 12/21/2018. His diagnosis is really not schizophrenia it is bipolar affective disorder with acute psychosis. He keeps on relapsing because he has known mood stabilization and he is sporadically taking his Abilify. Depakote 250 mg was added for mood stabilization. His paperwork for admission to the psychiatric unit through probate court was sent today and awaiting for the senior trial attorney from the court to do his deferral. Usual 15 minute checks have been instituted and as usual protocol on [address] [place] [address] Current Visit: No Status: Acute Priority: High Hospital Course: 12/02/2018: Chart reviewed, discussed with nursing staff and team then meeting with social work and community mental health. Awaiting probate Court senior trial attorney for deferral. Depakote 250 has had no side effects and has appeared to stabilize his mood. Usual 15 minute checks have been maintained as are the usual protocol for [facility] 12/03/2018: Chart reviewed and discussed with nursing staff and patient was visited by senior trial attorney from probate Court and deferred. He was given Abilify 400 mg injection on 11/29/2018. His next injection should be 12/17/2018. Mental status examination time of discharge: The patient presents alert, pleasant, and cooperative. There calmly seated without any agitated behavior. [He] reports that his] mood is good. Affect is congruent and euthymic. [He] deny having any suicidal or homicidal ideation intent or plan. He denies any auditory or visual hallucinations. There is no evidence of any delusional thought content. [His] thought process is linear and goal-directed. [His] speech is fluent and nonpressured. [His] memory and concentration is grossly intact for the purposes of this session. Patient Condition at Discharge: Stable Plan - Discharge Summary New Discharge Prescriptions: New ARIPiprazole IM [Abilify Maintena] 300 mg IM ONCE 28 Days #1 vial cloNIDine HCL [Catapres] 0.1 mg PO TID 30 Days #90 tab Divalproex ER [Depakote ER] 250 mg PO 2100 30 Days #30 tab.er.24h Discharge Medication List ARIPiprazole IM [Abilify Maintena] 300 mg IM ONCE 28 Days #1 vial 12/03/18 [Rx] Divalproex ER [Depakote ER] 250 mg PO 2100 30 Days #30 tab.er.24h 12/03/18 [Rx] cloNIDine HCL [Catapres] 0.1 mg PO TID 30 Days #90 tab 12/03/18 [Rx] Follow up Appointment(s)/Referral(s): [facility] [Outside] - 12/10/18 2:00 pm ([facility] Second appointment 12/15 @ 10:00) [facility] - 1 Week Patient Instructions/Handouts: Suicide Prevention (DC) Activity/Diet/Wound Care/Special Instructions: Activity and diet as tolerated. Avoid the use of street drugs and alcohol. Take all medications as prescribed. When you are in need of refills on your medications please contact your medical provider and/or outpatient psychiatrist to have this done. Please go to scheduled outpatient appointment for aftercare treatment. If symptoms return or become worse, call the crisis line at and/or go to the nearest emergency room for evaluation. Discharge Disposition: HOME SELF-CARE
== END 2018-12-03 16:16 | disposition home or self-care (01) | DRG 885 ==
LOC: 3MHU 02:41
PROVIDERS: ADMIT Psychiatry & Neurology Psychiatry; ATTEND Psychiatry & Neurology Psychiatry
DX: F25.9 Schizoaffective disorder, unspecified (principal); Q78.0 Osteogenesis imperfecta; T43.592A Poisoning by other antipsychotics and neuroleptics, intentional self-harm, initial encounter; Z82.49 Family history of ischemic heart disease and other diseases of the circulatory system; Z83.3 Family history of diabetes mellitus; Z87.891 Personal history of nicotine dependence; F31.9 Bipolar disorder, unspecified; M19.90 Unspecified osteoarthritis, unspecified site; Z82.0 Family history of epilepsy and other diseases of the nervous system; Z81.8 Family history of other mental and behavioral disorders; Z88.1 Allergy status to other antibiotic agents; Z63.5 Disruption of family by separation and divorce
CPT/HCPCS: 83036; 84439; 84443; 84481; 86140

== ENCOUNTER 2019-03-07 14:14 | Inpatient (IN) | payer BC, MEDICAID ==
--- NOTE | 2019-03-07 15:13 | ED ---
Psych HPI - General Chief Complaint: Psychiatric Symptoms Stated Complaint: Mental Health Time Seen by Provider: 03/07/19 14:39 Source: patient, RN notes reviewed Mode of arrival: ambulatory Limitations: no limitations - History of Present Illness Initial Comments: 24-year-old male presents emergency Department chief complaint of depression, suicidal ideation. Patient states that he suicidal today. He has a plan to overdose on pills but does not take any pills. Patient denies any self-harm. He does have extensive history of depression in which she has been admitted several times in the past. Patient is currently on antidepressants. Patient states he recently lost his job which makes him more suicidal. - Related Data Home Medications Medication Instructions Recorded Confirmed ARIPiprazole IM [Abilify Maintena] 400 mg IM Q30D 03/07/19 03/07/19 Escitalopram [Lexapro] 10 mg PO HS 03/07/19 03/07/19 Allergies Allergy/AdvReac Type Severity Reaction Status Date / Time cephalexin monohydrate Allergy Rash/Hives Verified 03/07/19 14:46 [From [employer]] Review of Systems ROS Statement: Those systems with pertinent positive or pertinent negative responses have been documented in the HPI. ROS Other: All systems not noted in ROS Statement are negative. Past Medical History Past Medical History: No Reported History, Osteoarthritis (OA) Additional Past Medical History / Comment(s): Osteogenesis imperfecta, migraines, multiple cellulitis bilateral legs, rods in bilat legs upper and lower legs History of Any Multi-Drug Resistant Organisms: None Reported Past Surgical History: Adenoidectomy, Tonsillectomy Additional Past Surgical History / Comment(s): bilateral legs with rods, occipital nerve blocks Past Anesthesia/Blood Transfusion Reactions: Postoperative Nausea & Vomiting (PONV) Past Psychological History: Depression, Schizophrenia Smoking Status: Never smoker Past Alcohol Use History: None Reported Past Drug Use History: Marijuana - Past Family History Father Family Medical History: Coronary Artery Disease (CAD), Diabetes Mellitus, Hypertension, Myocardial Infarction (OR) Additional Family Medical History / Comment(s): Father had his first Mi at the age of 33 yrs. He is bipolar. He has had Guzman's Palsey. Mother Family Medical History: Hypertension Additional Family Medical History / Comment(s): Migraines General Exam Limitations: no limitations General appearance: alert, in no apparent distress Head exam: Present: atraumatic, normocephalic, normal inspection Eye exam: Present: normal appearance, PERRL, EOMI. Absent: scleral icterus, conjunctival injection, periorbital swelling ENT exam: Present: normal exam, normal oropharynx, mucous membranes moist Neck exam: Present: normal inspection, full ROM. Absent: tenderness, meningismus, lymphadenopathy Respiratory exam: Present: normal lung sounds bilaterally. Absent: respiratory distress, wheezes, rales, rhonchi, stridor Cardiovascular Exam: Present: regular rate, normal rhythm, normal heart sounds. Absent: systolic murmur, diastolic murmur, rubs, gallop, clicks GI/Abdominal exam: Present: soft, normal bowel sounds. Absent: distended, tenderness, guarding, rebound, rigid Neurological exam: Present: alert, oriented X3, CN II-XII intact Psychiatric exam: Present: depressed Skin exam: Present: warm, dry, intact, normal color. Absent: rash Course Vital Signs 03/07/19 14:34 Temperature 97.8 F Pulse Rate 80 Respiratory 18 Rate Blood Pressure 155/99 O2 Sat by Pulse 100 Oximetry Medical Decision Making - Medical Decision Making 24-year-old male presented for psychiatric evaluation patient evaluated by EPS and case discussed with psychiatrist recommends inpatient treatment. - Lab Data Lab Results 03/07/19 Range/Units 14:59 Urine Opiates Screen Not Detected (NotDetected) Ur Oxycodone Screen Not Detected (NotDetected) Urine Methadone Screen Not Detected (NotDetected) Ur Propoxyphene Screen Not Detected (NotDetected) Ur Barbiturates Screen Not Detected (NotDetected) U Tricyclic Antidepress Not Detected (NotDetected) Ur Phencyclidine Scrn Not Detected (NotDetected) Ur Amphetamines Screen Not Detected (NotDetected) U Methamphetamines Scrn Not Detected (NotDetected) U Benzodiazepines Scrn Not Detected (NotDetected) Urine Cocaine Screen Not Detected (NotDetected) U Marijuana (THC) Screen Detected H (NotDetected) Disposition Clinical Impression: Depression, Suicidal ideation Disposition: ADMITTED IP TO THIS HOSP
[2019-03-07 15:54] LABS: Amphetamine Screen,Urine Not Detected (NotDetected); Barbiturate Screen,Urine Not Detected (NotDetected); Benzodiazepines Screen,Urine Not Detected (NotDetected); Cocaine Screen,Urine Not Detected (NotDetected); Methadone Screen, Urine Not Detected (NotDetected); Opiate Screen,Urine Not Detected (NotDetected); Oxycodone Screen, Urine Not Detected (NotDetected); Phencyclidine Screen,Urine Not Detected (NotDetected); Tricyclic Antidepressant,Urine Not Detected (NotDetected); Urn Cannabinoid Scrn Detected (NotDetected)
[2019-03-07] MEDS ORDERED: MAGNESIUM HYDROXIDE 2,400 MG/10 ML CUP PO PRN (16:14)
[2019-03-07] MEDS ORDERED: MAG HYDROX/AL HYDROX/SIMETH 30 ML CUP PO PRN (16:14)
[2019-03-07] MEDS ORDERED: ACETAMINOPHEN TAB 325 MG TAB PO PRN (16:14)
[2019-03-07] MEDS ORDERED: LORazepam 1 MG TAB PO PRN (16:14)
[2019-03-07] MEDS ORDERED: ARIPiprazole IM 400 MG VIAL (NO COST) IM SCH (16:30)
[2019-03-07 16:56] VITALS: BMI 35.8
[2019-03-08 08:40] LABS: ALT 50 U/L (21-72); AST 27 U/L (17-59); African American GFR (CKD) >90 (>60 ml/min/1.73 sqM); Albumin 4.5 g/dL (3.5-5.0); Alkaline Phosphatase 119 U/L (38-126); Anion Gap 9 mmol/L; Blood Urea Nitrogen 14 mg/dL (9-20); Calcium 9.7 mg/dL (8.4-10.2); Carbon Dioxide 26 mmol/L (22-30); Chloride 107 mmol/L (98-107); Cholesterol 226 mg/dL (<200); Glucose 96 mg/dL (74-99); HDL Cholesterol 33 mg/dL (40-60); LDL Cholesterol,Calculated 159 mg/dL (0-99); Potassium 4.6 mmol/L (3.5-5.1); Sodium 142 mmol/L (137-145); Total Bilirubin 0.9 mg/dL (0.2-1.3); Total Protein 7.6 g/dL (6.3-8.2); Triglycerides 170 mg/dL (<150)
[2019-03-08 08:54] LABS: Basophils % (A) 0 %; Eosinophils # (A) 0.2 k/uL (0-0.7); Eosinophils % (A) 3 %; HCT 48.1 % (39.0-53.0); HGB 15.8 gm/dL (13.0-17.5); Lymphocytes # (A) 1.9 k/uL (1.0-4.8); Lymphocytes % (A) 24 %; MCH 29.3 pg (25.0-35.0); MCHC 32.9 g/dL (31.0-37.0); MCV 89.2 fL (80.0-100.0); Mean Platelet Volume 7.8; Monocytes # (A) 0.3 k/uL (0-1.0); Monocytes % (A) 4 %; Neutrophils # (A) 5.3 k/uL (1.3-7.7); Neutrophils % (A) 67 %; Platelet Count 225 k/uL (150-450); RBC 5.39 m/uL (4.30-5.90); RDW 13.9 % (11.5-15.5); WBC 7.9 k/uL (3.8-10.6)
[2019-03-08] MEDS: ESCITALOPRAM 20 MG TAB PO SCH (10:20)
--- NOTE | 2019-03-08 14:50 | HP ---
HISTORY AND PHYSICAL IDENTIFYING DATA: The patient is a 24-year-old male. He resides with his mother, brother and brother's girlfriend. He came to the emergency department for evaluation and referral. CHIEF COMPLAINT: The patient was depressed. He had suicide thoughts. He has significant anxiety. HISTORY OF PRESENTING ILLNESS: The patient has had long-term problems with depression he says, especially he has had more problems in the last 2 years. He was previously admitted here November 29, 2018 and was diagnosed with major depression with psychotic features and schizoaffective disorder. Discharge medications included Abilify Maintena 300 mg a day, Depakote ER 250 mg a day and clonidine 0.1 mg 3 times a day. The patient notes that going back to the October hospitalization, he was having auditory and visual hallucinations that went back 2 years. He said he first got on Abilify when he had a hospitalization 2 years ago in [place]. He says when he got on the Abilify, the hallucinations cleared up. He continued on Abilify. He was vague about details, though suggested that he was likely not taking Abilify consistently. He was not clear whether he was on any other psychotropic medications. He has been followed up through [facility] and has seen Dr. Arreguin for psychiatric followup and [facility] for psychotherapy. He says with his hospitalization in October, he chose to be on Abilify Maintena as a better option for him then all the medications for compliance. He says since he has been on the Abilify Maintena, he has had no further problems with auditory or visual hallucinations. He notes that his main issue currently is that he is going through a divorce. He said that he and his have had a lot of struggles in their relationship. He notes that she had an admission in this facility in December for her own problems with depression and suicidality. The 2 of them moved apart about 2 months ago. The patient notes that he has been sleeping poorly he has loss of motivation energy and interest. He said that he got fired from a job 1 week ago, mainly because of absences from work. He had been working there for 2-1/2 years. He notes that his sleep has been up and down in part relating to the fact that he was working midnights and never had a stable sleep pattern. He was vague about whether or not he had any past trauma or posttraumatic issues. He stated that he has no recollection of childhood before the age of around 5 or 7th grade. He says prior to that, everything in his life is simply a blank. He denied current problems with panic. He does have some anxiety which he experiences mainly as shaking in his legs. This may relate to his Abilify. He notes that he had been taking Lexapro which he felt helped him, though he was unclear about how much he has been taking of late. He acknowledges that he has been inconsistent with taking oral medications in general. The patient says that he came to the hospital because he started having suicide thoughts. He was vague about specifics or the degree of intent he was experiencing. The patient states that he has been in counseling on a once a month basis, though has not seen his counselor in the last 2 months. He is admitted for further evaluation. SUBSTANCE USE HISTORY: Patient smokes marijuana daily. He denies use of any other abusive substances. PAST MEDICAL HISTORY: The patient reports no current or chronic general health complaints. FAMILY AND SOCIAL HISTORY: The patient dropped out of school in the 12th grade. He has a son, 8 years old who lives primarily with the son's mother. He keeps in touch with his son and the mother. He currently has been living with his mother, brother and brother's girlfriend after he and his about 2 months ago. The patient reports no legal issues. MENTAL STATUS EXAM: Patient was cooperative. He gave good eye contact. He was restless. He answered questions directly. His thoughts were clear and coherent. He had a somewhat constricted affect, though was noted that a number of different times during the interview he smiled. He seemed to have a relaxed manner at times that belied the depression he was describing. His mood was reserved. There was no indication of thought disorder. It was difficult to assess his level of distress. He was oriented and alert. Recent and remote memory was intact. He remembered 2 out of 3 objects at 4 minutes. He could do serial subtraction. Insight and judgment uncertain. Fund of knowledge average. PHYSICAL EXAM: As per medical consultation. ASSESSMENT: This 24-year-old male is diagnosed with major depression. He has a history of psychotic symptoms that have resolved currently with his ongoing use of Abilify Maintena. He has current family stress issues in that he and his have and are in the process of divorce. He notes that his also has significant mental health issues herself. Other factors leading up to his current situation are less clear. Strengths include ely shoshone intelligence and his efforts to get mental health help. Weakness includes significant memory impairment for events through much of his childhood. DIAGNOSES: 1. Major depression, chronic and recurrent severe without psychotic features, with a history of psychotic features in the past. 2. Rule out posttraumatic stress disorder. 3. Marijuana dependence. RECOMMENDATIONS: Patient will be admitted for comprehensive medical psychiatric and psychosocial evaluation. We will engage the patient in individual and group therapeutic activities. I will start the patient on Lexapro 20 mg a day. He has received Abilifshelley Maintena. He believes the dose was 400 mg. He says he obtains the medication from the pharmacy and his mother who is a nurse administers the medication. His last dose was 02/24/2019. When I had discussed social issues, patient said that he would feel a most supportive person that could help to further expand assessment would be his mother. We will need to set up a family meeting with the patient's mother NUBIA. We do need to coordinate with [facility] counseling. It is noteworthy that the patient has been in counseling on a monthly basis and likely needs more assertive counseling. We will focus on stabilization and discharge planning. SUAD / MAGDALENO: [id number] /
--- NOTE | 2019-03-08 19:53 | P.MDCNMH ---
History of Present Illness H&P Date: 03/08/19 Chief Complaint: suicidal ideation 24 year old male with history of depression patient presented to the ED with complaints of overwhelming depression and suicidal ideation. She was planning on overdosing on his daily pills. Patient hears voices that tells him to hurt himself. Patient is going through life stressors as he lost his job recently he has long history of major depression with history of psychosis in the past. He denies any medical history otherwise denies any current complaints of chest pain trouble breathing coughing fevers or chills denies any abdominal pain changes in his bowel or urinary habits denies any focal neuro deficits Review of Systems Pertinent positives as noted in HPI. All other systems were reviewed and are negative Past Medical History Past Medical History: Osteoarthritis (OA) Additional Past Medical History / Comment(s): Osteogenesis imperfecta, migraines, multiple cellulitis bilateral legs, rods in bilat legs upper and lower legs History of Any Multi-Drug Resistant Organisms: None Reported Past Surgical History: Adenoidectomy, Orthopedic Surgery, Tonsillectomy Additional Past Surgical History / Comment(s): bilateral legs with rods, occipital nerve blocks Past Anesthesia/Blood Transfusion Reactions: Postoperative Nausea & Vomiting (PONV) Past Psychological History: Depression, Schizophrenia Additional Psychological History / Comment(s): Pt states he is suicidal. Pt st ates he has a plan for suicide but states "don't want to talk about it." He states d/t too much stress in his life. Pt resides at home with his spouse. He is independent. He works at [employer]. Smoking Status: Never smoker Past Alcohol Use History: None Reported Past Drug Use History: Marijuana Additional Drug Use History / Comment(s): Pt smokes marijuana occasionally. - Past Family History Father Family Medical History: Coronary Artery Disease (CAD), Diabetes Mellitus, Hypertension, Myocardial Infarction (CT) Additional Family Medical History / Comment(s): Father had his first Mi at the age of 33 yrs. He is bipolar. He has had Guzman's Palsey. Mother Family Medical History: Hypertension Additional Family Medical History / Comment(s): Migraines Medications and Allergies Home Medications Medication Instructions Recorded Confirmed Type ARIPiprazole IM [Abilify Maintena] 400 mg IM Q30D 03/07/19 03/07/19 History Escitalopram [Lexapro] 10 mg PO HS 03/07/19 03/07/19 History Allergies Allergy/AdvReac Type Severity Reaction Status Date / Time cephalexin monohydrate Allergy Rash/Hives Verified 03/07/19 14:46 [From [employer]ef[employer]] Physical Exam Vitals: Vital Signs Temp Pulse Pulse Resp BP BP Pulse Ox 03/08/19 06:22 98 16 119/74 03/07/19 16:50 97.2 F L 79 18 146/93 03/07/19 16:28 97.9 F 79 16 170/97 98 03/07/19 14:34 97.8 F 80 18 155/99 100 Intake and Output 03/07/19 03/08/19 03/08/19 22:59 06:59 14:59 Other: Weight 119.833 kg Constitutional: No acute distress, conversant, pleasant Eyes: Anicteric sclerae, moist conjunctiva, no lid-lag Pupils equal round reactive to light ENMT: NC/AT Oropharynx clear, no erythema, exudates Neck: Supple, FROM, no masses, or JVD No carotid bruits No thyromegaly Lungs: Clear to auscultation Clear to percussion Normal respiratory effort, no accessory muscle use Cardiovascular: Heart regular in rate and rhythm, No murmurs, gallops, or rubs No peripheral edema Abdominal: Soft Nontender, no guarding, rebound or rigidity Abdomen moving with respiration Normoactive bowel sounds No hepatomegaly, No splenomegaly No palpable mass No abdominal wall hernia noted Skin: Normal temperature, tone, texture, turgor No induration No subcutaneous nodules No rash, lesions No ulcers Extremities: No digital cyanosis No clubbing Pedal pulses intact and symmetrical Radial pulses intact and symmetrical No calf tenderness Psychiatric: Alert and oriented to person, place and time Depressed affect fair judgment Neuro Muscles Strength 5/5 in all 4 extremities Sensation to light touch grossly present throughout Cranial nerves II-XII grossly intact No focal sensory deficits Lymphatics: no palpable cervical or supraclavicular , or inguinal lymph nodes Cranial Nerve Examination - Cranial Nerves Cranial Nerve II- Optic: Intact Cranial Nerve III- Oculomotor: Intact Cranial Nerve IV- Trochlear: Intact Cranial Nerve V- Trigeminal: Intact Cranial Nerve - Abducens: Intact Cranial Nerve VII- Facial: Intact Cranial Nerve VIII- Auditory: Intact Cranial Nerve IX- Glossopharyngeal: Intact Cranial Nerve X- Vagus: Intact Cranial Nerve XI- Accessory: Intact Cranial Nerve XII- Hypoglossal: Intact Results CBC & Chem 7: 03/08/19 08:02 03/08/19 08:02 Labs: Abnormal Lab Results - Last 24 Hours (Table) 03/07/19 Range/Units 14:59 U Marijuana (THC) Screen Detected H (NotDetected) Assessment and Plan Assessment: 24-year-old male with no significant past medical history except for history of depression and psychosis. Admitted due to suicidal ideation currently has no active medical issues Plan: Depression and suicidal ideation Management per psych Marijuana smoking Low risk for DVT patient is ambulatory Thank you for allowing us to participate in the care of this patient. We will follow peripherally. Do not hesitate to contact us with questions. Someone can be reached from the [facility] hospitalist group at all hours of the day at [phone].
[2019-03-09] MEDS: ESCITALOPRAM 20 MG TAB PO SCH (08:44)
[2019-03-09 10:36] LABS: Hemoglobin A1C 5.4 % (4.0-6.0)
--- NOTE | 2019-03-09 11:38 | P.PN ---
Progress Note - Text Progress Note Date: 03/09/19 Interval History: Patient is a 24-year-old male who was seen today and he states that he had been having suicidal thoughts as an outpatient of taking an overdose. He states that he has been receiving Abilify long-acting injectable for 3 months now for hearing voices. He states that he wasn't depressed at that time, he was admitted here in December of this year and discharged on Abilify long- acting injectable and Depakote. Patient states that he has discontinued the Depakote. Patient states that he became increasingly depressed at home. Patient been started on Lexapro 10 mg to target his depression as an outpatient but continued to feel that he was getting increasingly depressed. Patient states that he is no longer having any suicidal thoughts and slept well last night. He reports no psychotic symptoms and states he is not hearing voices. Mental Status: Appearance/Attitude: Patient is appropriately dressed, makes eye contact and was cooperative Behavior: Patient does not exhibit any psychomotor agitation or retardation. Speech/Language: Patient's speech is spontaneous of normal volume and rhythm and he is coherent Thought Process: Patient is goal-directed there is no evidence of loose association or flight of ideas Thought Content: Patient denies any auditory or visual hallucinations and no delusions or paranoid ideation are elicited. Patient states that he is no longer feeling suicidal and states that he had been feeling depressed prior to coming into the hospital. He states he is not having any difficulty sleeping and did well last evening. Suicidal/Homicidal Ideation: Patient denies any current suicidal or homicidal ideation Sensorium/Cognition: Patient is alert and oriented to person, place, and time and his recent and remote memory are grossly intact Mood/Affect: Patient's mood is less depressed and his affect is appropriate Insight/Judgment: Patient's insight and judgment are fair Assessment: Patient states he been stabilized on Abilify long-acting injectable on a monthly basis and had been doing well until recently becoming increasingly depressed. He states that he has not been hearing voices which he had been hearing prior to the Abilify being started which he described as just gibberish. Patient states that he is not currently hearing voices but did have thoughts of suicide prior to coming into the hospital and had thought of taking an overdose. He had been started as an outpatient on Lexapro at 10 mg a day. Plan: Patient will continue on Lexapro which was increased to 20 mg at the time of his admission and he is not due for his next Abilify injection until March 24. Patient continues to require hospitalization to further stabilize his mood.
[2019-03-10] MEDS: ESCITALOPRAM 20 MG TAB PO SCH (08:53)
--- NOTE | 2019-03-10 12:48 | P.PN ---
Progress Note - Text Progress Note Date: 03/10/19 Interval History: Patient is a 25-year-old male who was seen today and he reports that he is doing much better here he states his mood is better he sleeping better no longer feeling depressed and not suicidal. He states that he attended some groups yesterday and plans on attending all of them today. He states that he is also feeling more relaxed and he knows this because he is not shaking his leg is much, something that he states he's always done. Patient states that he wasn't compliant with the Lexapro as an outpatient, states that getting fired because he was leaving work to frequently were the issues that precipitated his admission. He states that getting the divorce is not something new. Patient states he is more motivated, sees that he needs to find a new job and make sure that he attends work. Mental Status: Appearance/Attitude: Patient is neatly and appropriately dressed, makes eye contact and is cooperative Behavior: Patient does not exhibit any psychomotor agitation or retardation. Speech/Language: Patient's speech is spontaneous of normal volume and rhythm and he is coherent Thought Process: Patient is goal-directed there is no evidence of loose association or flight of ideas Thought Content: Patient denies any auditory or visual hallucinations and no paranoid or delusional ideation is elicited. Patient states that he is feeling much better, sleeping better feeling more relaxed and states that his mood is more stable. He states that he has been eating well. He also states that he is not shaking his leg is much something that he is always done. Suicidal/Homicidal Ideation: Patient denies any current suicidal or homicidal ideation Sensorium/Cognition: Patient is alert and oriented to person, place, and time and his recent and remote memory grossly intact Mood/Affect: Patient's mood is brighter and his affect is appropriate to his mood Insight/Judgment: Patient's insight and judgment are fair Assessment: Patient reports with the increase in Lexapro as well as taking at on a regular basis has improved his mood is no longer feeling as depressed and states he is more relaxed and not shaking his foot is much as he usually does. He states he's sleeping well and eating well. He states he's been attending groups this morning and reports that he is no longer having any suicidal thoughts. Patient reported no side effects from the medication. Plan: Patient continue on Lexapro 20 mg and he is also maintained on long-acting injectable Abilify due on March 24. Patient and I discussed as he is continue to improve and is feeling better discharge tomorrow should he continue to do well and he was in agreement with this plan.
[2019-03-11 07:04] VITALS: BP 137/76; PULSE 88; RESP 16; TEMP 98
[2019-03-11] MEDS: ESCITALOPRAM 20 MG TAB PO SCH (08:28)
--- NOTE | 2019-03-11 11:28 | P.DS ---
Providers Date of admission: 03/07/19 16:11 Expected date of discharge: 03/11/19 Attending physician: Kelsey Parrish MD Consults: 03/07/19 16:14 Consult Physician Routine Consulting Provider: Xiomara Little Consult Reason/Comments: medical management Do you want consulting provider notified?: Yes, Notify in am Primary care physician: Stated None Hospital Course: Discharge Diagnosis: Major depressive disorder, recurrent severe Reason for Admission: Patient is a 24-year-old male who was brought to the emergency room due to suicidal thoughts and depression. Patient was not reporting any psychotic symptoms and states he was feeling increasingly depressed due to recently being fired. He states that he was fired from his job because he was leaving work early. Patient states that he is also continuing to deal with a divorce. Patient has been living with his mother and has been followed at [facility]. Patient has been receiving Abilify long-acting i njectable on a monthly basis and states that that targeted and treated his psychotic symptoms. Patient states that he had been feeling depressed, not sleeping well and had no energy or motivation. Patient had not been taking his Lexapro consistently, and he feels that this may have increased his depressive symptoms. Patient presented to the hospital due to suicidal thoughts and was unable to state his intent or plans. Patient on admission presented with a constricted affect, depressed mood and was somewhat vague in his responses. Patient reported suicidal thoughts but no active plan, he was alert and oriented to person place and time and his route recent and remote memory were grossly intact. Patient denied any auditory or visual hallucinations and no delusions or paranoid ideation were elicited on admission. Hospital Course: Patient was admitted on a voluntary basis, placed on routine observation in group and activity therapy were ordered. Patient also had routine laboratory studies as well as a medical consultation ordered. Patient had recently had his injection of Abilify long-acting 400 mg it was not due for her next injection until March 26. Patient's Lexapro was increased to 20 mg a day to target his symptoms of depression. Patient reported that his mood improved, he was no longer having suicidal thoughts. Patient stated to me that he was feeling more relaxed and wasn't shaking his leg as he has done in the past. Patient reported that he was sleeping much better feeling rested and felt more motivated and interested to leave the hospital and find work. Patient states he was any side effects from the medicine and reported no psychotic symptoms. Patient was attending groups and activities and states that he already to leave the hospital. Allergies cephalexin monohydrate [From Keflex] Allergy (Verified 03/07/19 14:46) Rash/Hives Laboratory Last Values WBC 7.9 k/uL (3.8-10.6) 03/08/19 08:02 RBC 5.39 m/uL (4.30-5.90) 03/08/19 08:02 Hgb 15.8 gm/dL (13.0-17.5) 03/08/19 08:02 Hct 48.1 % (39.0-53.0) 03/08/19 08:02 MCV 89.2 fL (80.0-100.0) 03/08/19 08:02 MCH 29.3 pg (25.0-35.0) 03/08/19 08:02 MCHC 32.9 g/dL (31.0-37.0) 03/08/19 08:02 RDW 13.9 % (11.5-15.5) 03/08/19 08:02 Plt Count 225 k/uL (150-450) 03/08/19 08:02 Neutrophils % 67 % 03/08/19 08:02 Lymphocytes % 24 % 03/08/19 08:02 Monocytes % 4 % 03/08/19 08:02 Eosinophils % 3 % 03/08/19 08:02 Basophils % 0 % 03/08/19 08:02 Neutrophils # 5.3 k/uL (1.3-7.7) 03/08/19 08:02 Lymphocytes # 1.9 k/uL (1.0-4.8) 03/08/19 08:02 Monocytes # 0.3 k/uL (0-1.0) 03/08/19 08:02 Eosinophils # 0.2 k/uL (0-0.7) 03/08/19 08:02 Basophils # 0.0 k/uL (0-0.2) 03/08/19 08:02 Sodium 142 mmol/L (137-145) 03/08/19 08:02 Potassium 4.6 mmol/L (3.5-5.1) 03/08/19 08:02 Chloride 107 mmol/L (98-107) 03/08/19 08:02 Carbon Dioxide 26 mmol/L (22-30) 03/08/19 08:02 Anion Gap 9 mmol/L 03/08/19 08:02 BUN 14 mg/dL (9-20) 03/08/19 08:02 Creatinine 0.97 mg/dL (0.66-1.25) 03/08/19 08:02 Est GFR (CKD-EPI)AfAm >90 (>60 ml/min/1.73 sqM) 03/08/19 08:02 Est GFR (CKD-EPI)NonAf >90 (>60 ml/min/1.73 sqM) 03/08/19 08:02 Glucose 96 mg/dL (74-99) 03/08/19 08:[address] Glu mg/dL 108 03/08/19 08:02 Hemoglobin A1c 5.4 % (4.0-6.0) 03/08/19 08:02 Calcium 9.7 mg/dL (8.4-10.2) 03/08/19 08:02 Total Bilirubin 0.9 mg/dL (0.2-1.3) 03/08/19 08:02 AST 27 U/L (17-59) 03/08/19 08:02 ALT 50 U/L (21-72) 03/08/19 08:02 Alkaline Phosphatase 119 U/L (38-126) 03/08/19 08:02 Total Protein 7.6 g/dL (6.3-8.2) 03/08/19 08:02 Albumin 4.5 g/dL (3.5-5.0) 03/08/19 08:02 Triglycerides 170 mg/dL (<150) H 03/08/19 08:02 Cholesterol 226 mg/dL (<200) H 03/08/19 08:02 LDL Cholesterol, Calc 159 mg/dL (0-99) H 03/08/19 08:02 HDL Cholesterol 33 mg/dL (40-60) L 03/08/19 08:02 TSH 1.560 mIU/L (0.465-4.680) 03/08/19 08:02 Urine Opiates Screen Not Detected (NotDetected) 03/07/19 14:59 Ur Oxycodone Screen Not Detected (NotDetected) 03/07/19 14:59 Urine Methadone Screen Not Detected (NotDetected) 03/07/19 14:59 Ur Propoxyphene Screen Not Detected (NotDetected) 03/07/19 14:59 Ur Barbiturates Screen Not Detected (NotDetected) 03/07/19 14:59 U Tricyclic Antidepress Not Detected (NotDetected) 03/07/19 14:59 Ur Phencyclidine Scrn Not Detected (NotDetected) 03/07/19 14:59 Ur Amphetamines Screen Not Detected (NotDetected) 03/07/19 14:59 U Methamphetamines Scrn Not Detected (NotDetected) 03/07/19 14:59 U Benzodiazepines Scrn Not Detected (NotDetected) 03/07/19 14:59 Urine Cocaine Screen Not Detected (NotDetected) 03/07/19 14:59 U Marijuana (THC) Screen Detected (NotDetected) H 03/07/19 14:59 Discharge Mental Status:Appearance/Attitude: Patient is neatly and appropriately dressed, makes eye contact and was cooperative. Behavior: Patient does not exhibit any psychomotor agitation or retardation. Speech/Language: Patient's speech was spontaneous of normal volume and rhythm and he was coherent Thought Process: Patient was goal-directed there is no evidence of loose association or flight of ideas Thought Content: Patient denied any auditory or visual hallucinations and no delusions or paranoid ideation were elicited. Patient states that he is feeling more motivated and interested to do things, feels rested in the morning and has been sleeping well. He reports that he is eager to return home and look for a job. Patient states that he is not having any side effects from the medication. Patient reports that he usually was always shaking his leg and states that on the increased dose of Lexapro he is feeling more relaxed and has not been doing this as much. Patient's appetite is good. Suicidal/Homicidal Ideation: Patient denies any current suicidal or homicidal ideation Sensorium/Cognition: Patient is alert and oriented to person, place, and time and his recent and remote memory are grossly intact Mood/Affect: Patient's mood is pleasant and his affect is appropriate Insight/Judgment: Patient's insight and judgment are fair Risk Assessment: Patient's risk for readmission is moderate should he stopped his medications, would not comply with outpatient treatment or use drugs and/or alcohol Discharge Plan: Patient will be discharged and will return home to live with his mother. He will continue on Abilify Maintenna 400 mg IM next due on March 26. Patient will also continue on Lexapro 20 mg daily and a prescription will be given for this medication. Patient states that he has a prescription for his Abilify long-acting injectable. Patient will continue to follow up at [facility] and has an appointment tomorrow morning. Patient was encouraged to be compliant with medication and follow-up appointments and to avoid all alcohol and drugs. Patient Condition at Discharge: Stable Plan - Discharge Summary New Discharge Prescriptions: New Escitalopram [Lexapro] 20 mg PO DAILY 1 Days #14 tab Continue ARIPiprazole IM [Abilify Maintena] 400 mg IM Q30D Discontinued Escitalopram [Lexapro] 10 mg PO HS Discharge Medication List ARIPiprazole IM [Abilify Maintena] 400 mg IM Q30D 03/07/19 [History] Escitalopram [Lexapro] 20 mg PO DAILY 1 Days #14 tab 03/11/19 [Rx] Follow up Appointment(s)/Referral(s): [facility]ink [Outside] - 03/12/19 11:00 am (Sabino Sanchez) None,Stated [Primary Care Provider] - 1-2 days Discharge Disposition: HOME SELF-CARE
== END 2019-03-11 12:02 | disposition home or self-care (01) | DRG 885 ==
LOC: EC 14:14 → 3MHU 16:11
PROVIDERS: ADMIT Psychiatry & Neurology Psychiatry; ATTEND Psychiatry & Neurology Psychiatry
DX: F33.2 Major depressive disorder, recurrent severe without psychotic features (principal); F12.20 Cannabis dependence, uncomplicated; F41.9 Anxiety disorder, unspecified; Z56.0 Unemployment, unspecified; Z79.899 Other long term (current) drug therapy; Z82.49 Family history of ischemic heart disease and other diseases of the circulatory system; Z83.3 Family history of diabetes mellitus; Z82.0 Family history of epilepsy and other diseases of the nervous system; Z88.1 Allergy status to other antibiotic agents; Z90.89 Acquired absence of other organs; Z86.19 Personal history of other infectious and parasitic diseases
CPT/HCPCS: 80053; 80061; 80306; 82075; 83036; 84443; 85025; 99285

== ENCOUNTER 2019-08-20 19:33 | Emergency (ER) | payer BC, OTHER ==
[2019-08-20 20:03] VITALS: TEMP 100.7
[2019-08-20] MEDS ORDERED: ACETAMINOPHEN TAB 500 MG TAB PO STA (20:03)
[2019-08-20] MEDS ORDERED: ONDANSETRON 4 MG ODT STARTER PACK 2 TAB BTL PO STA (20:03)
[2019-08-20] MEDS ORDERED: IBUPROFEN 600 MG TAB PO STA (20:03)
--- NOTE | 2019-08-20 20:24 | ED ---
General Adult HPI - General Chief complaint: Headache Stated complaint: Vomiting, headache, chest pain Time Seen by Provider: 08/20/19 19:53 Source: patient Mode of arrival: ambulatory Limitations: no limitations - History of Present Illness Initial comments: 24-year-old male patient presents to the emergency department today for evaluation of upper respiratory symptoms, headache, and vomiting. Patient states he has been sick for the last 3 days with cough, sore throat, nasal congestion. States he is coughing up green sputum. States that he is having chest pain with coughing. He is also reporting multiple episodes of posttussive vomiting. Denies history of smoking. States he has been sweating and has been chilled but denies any known fever. Denies any abdominal pain, constipation, or diarrhea. States his sibling is sick with similar symptoms. Denies taking any medication for symptom relief. Patient denies any recent rash, shortness breath, back pain, numbness, tingling, dizziness, weakness, hematuria, dysuria, urinary urgency, urinary frequency, headache, visual changes, or any other complaints. - Related Data Home Medications Medication Instructions Recorded Confirmed ARIPiprazole IM [Abilify Maintena] 400 mg IM Q30D 03/07/19 03/07/19 Previous Rx's Medication Instructions Recorded Escitalopram [Lexapro] 20 mg PO DAILY 1 Days #14 tab 03/11/19 guaiFENesin-DM 600/30MG [Mucinex 1 each PO Q12HR #10 tab.er.12h 08/20/19 Dm] Allergies Allergy/AdvReac Type Severity Reaction Status Date / Time cephalexin monohydrate Allergy Rash/Hives Verified 08/20/19 19:48 [From [facility]] Review of Systems ROS Statement: Those systems with pertinent positive or pertinent negative responses have been documented in the HPI. ROS Other: All systems not noted in ROS Statement are negative. Past Medical History Past Medical History: Osteoarthritis (OA) Additional Past Medical History / Comment(s): Osteogenesis imperfecta, migraines, multiple cellulitis bilateral legs, rods in bilat legs upper and lower legs History of Any Multi-Drug Resistant Organisms: None Reported Past Surgical History: Adenoidectomy, Orthopedic Surgery, Tonsillectomy Additional Past Surgical History / Comment(s): bilateral legs with rods, o ccipital nerve blocks Past Anesthesia/Blood Transfusion Reactions: Postoperative Nausea & Vomiting (PONV) Past Psychological History: Depression, Schizophrenia Smoking Status: Never smoker Past Alcohol Use History: None Reported Past Drug Use History: Marijuana - Past Family History Father Family Medical History: Coronary Artery Disease (CAD), Diabetes Mellitus, Hypertension, Myocardial Infarction (AL) Additional Family Medical History / Comment(s): Father had his first Mi at the age of 33 yrs. He is bipolar. He has had Guzman's Palsey. Mother Family Medical History: Hypertension Additional Family Medical History / Comment(s): Migraines General Exam Limitations: no limitations General appearance: alert, in no apparent distress, other (this is a well- developed, well-nourished adult male patient in no acute distress.) Eye exam: Present: normal appearance, PERRL, EOMI. Absent: scleral icterus, conjunctival injection, periorbital swelling ENT exam: Present: normal exam, normal oropharynx, mucous membranes moist, TM's normal bilaterally Neck exam: Present: normal inspection. Absent: tenderness, meningismus, lymphadenopathy Respiratory exam: Present: normal lung sounds bilaterally. Absent: respiratory distress, wheezes, rales, rhonchi, stridor Cardiovascular Exam: Present: normal rhythm, tachycardia, normal heart sounds. Absent: systolic murmur, diastolic murmur, rubs, gallop, clicks GI/Abdominal exam: Present: soft, normal bowel sounds. Absent: distended, tenderness, guarding, rebound, rigid Neurological exam: Present: alert, oriented X3, CN II-XII intact Psychiatric exam: Present: normal affect, normal mood Skin exam: Present: warm, dry, intact, normal color. Absent: rash Course Vital Signs 08/20/19 08/20/19 19:45 20:03 Temperature 99.7 F H 100.7 F H Pulse Rate 125 H Respiratory 20 Rate Blood Pressure 132/87 O2 Sat by Pulse 96 Oximetry Medical Decision Making - Medical Decision Making 24-year-old male patient presents to the emergency department today for evaluation of nasal congestion, sore throat, and cough. Patient is also reporting headache and a few episodes of posttussive vomiting. Lungs are clear to auscultation with good air movement. Oxygen saturation is normal. He was febrile at 100.7 with some tachycardia. Chest x-ray shows no acute cardiopulmonary process. Influenza testing is negative. Symptoms are consistent with acute upper respiratory infection. We did discuss symptom management including fever control and kteg-[id number] cold medications. We'll give prescription for Mucinex DM. He is instructed to follow-up with his primary care physician for recheckin 1-2 days. Return parameters were discussed in detail. He verbalizes understanding and agrees with this plan. - Lab Data Lab Results 08/20/19 Range/Units 20:05 Influenza Type A RNA Not Detected (Not Detectd) Influenza Type B (PCR) Not Detected (Not Detectd) - Radiology Data Radiology results: report reviewed, image reviewed 2 views of the chest are obtained. Report was reviewed in its entirety. Impression by Dr. Ricci shows normal chest. Disposition Clinical Impression: Viral upper respiratory infection Disposition: HOME SELF-CARE Condition: Good Instructions (If sedation given, give patient instructions): Fever in Adults (ED), Upper Respiratory Infection (ED) Additional Instructions: Increase fluids. Rest. Take medications as directed. Follow-up through primary care physician for recheck in 1-2 days. Return to the emergency department immediately for any new, worsening, or concerning symptoms. Prescriptions: guaiFENesin-DM 600/30MG [Mucinex Dm] 1 each PO Q12HR #10 tab.er.12h Is patient prescribed a controlled substance at d/c from ED?: No Referrals: None,Stated [Primary Care Provider] - 1-2 days Time of Disposition: 21:07
--- NOTE | 2019-08-20 20:39 | XR ---
EXAMINATION TYPE: XR chest 2V DATE OF EXAM: 08/20/2019 COMPARISON: 04/15/2007 HISTORY: Cough and fever TECHNIQUE: 2 views FINDINGS: Heart and mediastinum are normal. Lungs are clear. Diaphragm is normal. Bony thorax appears normal. IMPRESSION: Normal chest.
[2019-08-20 21:28] VITALS: BP 109/67; PULSE 91; RESP 16
== END 2019-08-20 21:41 | disposition home or self-care (01) ==
LOC: EC 19:33
DX: J06.9 Acute upper respiratory infection, unspecified (principal); Z88.1 Allergy status to other antibiotic agents
CPT/HCPCS: 71046; 87502; 99284

== ENCOUNTER 2019-09-13 22:18 | Emergency (ER) | payer BC, OTHER ==
[2019-09-13 22:23] VITALS: RESP 16
[2019-09-13] MEDS ORDERED: KETOROLAC 60 MG/2 ML VIAL IM STA (23:12)
--- NOTE | 2019-09-13 23:29 | ED ---
Back Pain HPI - General Chief Complaint: Back Pain/Injury Stated Complaint: Back pain Time Seen by Provider: 09/13/19 22:27 Source: patient Limitations: no limitations - History of Present Illness Initial Comments: Patient is a 24-year-old male presenting to the emergency Department with complaints of back pain after he fell down some stairs today. Patient states he was carrying a laundry basket and slipped going down some stairs falling backwards onto his tailbone and sliding down about 10 stairs. Patient has history of osteogenesis imperfecta and has also had a fractured lumbar area approximately 10 years ago. Patient is denying numbness and tingling into his lower extremities, bowel or bladder incontinence. Patient is able to walk he just feels stiff and sore when he does. Patient has no other injuries from this fall. He has no other complaints at this time. Upon arrival to the ER, his vital signs are stable. - Related Data Home Medications Medication Instructions Recorded Confirmed ARIPiprazole IM [Abilify Maintena] 400 mg IM Q30D 03/07/19 03/07/19 Previous Rx's Medication Instructions Recorded Escitalopram [Lexapro] 20 mg PO DAILY 1 Days #14 tab 03/11/19 guaiFENesin-DM 600/30MG [Mucinex 1 each PO Q12HR #10 tab.er.12h 08/20/19 Dm] Cyclobenzaprine [Flexeril] 5 mg PO BID #10 tablet 09/14/19 Allergies Allergy/AdvReac Type Severity Reaction Status Date / Time cephalexin monohydrate Allergy Rash/Hives Verified 09/13/19 22:21 [From Keflex] Review of Systems ROS Statement: Those systems with pertinent positive or pertinent negative responses have been documented in the HPI. ROS Other: All systems not noted in ROS Statement are negative. Past Medical History Past Medical History: Osteoarthritis (OA) Additional Past Medical History / Comment(s): Osteogenesis imperfecta, migraines, multiple cellulitis bilateral legs, rods in bilat legs upper and lower legs, History of Any Multi-Drug Resistant Organisms: None Reported Past Surgical History: Adenoidectomy, Orthopedic Surgery, Tonsillectomy Additional Past Surgical History / Comment(s): bilateral legs with rods, occipital nerve blocks, Past Anesthesia/Blood Transfusion Reactions: Postoperative Nausea & Vomiting (PONV) Past Psychological History: Depression, Schizophrenia Smoking Status: Never smoker Past Alcohol Use History: None Reported Past Drug Use History: Marijuana - Past Family History Father Family Medical History: Coronary Artery Disease (CAD), Diabetes Mellitus, Hyper tension, Myocardial Infarction ([place]) Additional Family Medical History / Comment(s): Father had his first Mi at the age of 33 yrs. He is bipolar. He has had Guzman's Palsey. Mother Family Medical History: Hypertension Additional Family Medical History / Comment(s): Migraines General Exam - General Exam Comments Initial Comments: GENERAL: Well-appearing, well-nourished and in no acute distress, although looks uncomfortable. HEAD: Atraumatic, normocephalic. EYES: Pupils equal round and reactive to light, extraocular movements intact, sclera anicteric, conjunctiva are normal. ENT: Nares patent, oropharynx clear without exudates. Moist mucous membranes. NECK: Normal range of motion, supple without lymphadenopathy or JVD. LUNGS: Breath sounds clear to auscultation bilaterally and equal. No wheezes rales or rhonchi. HEART: Regular rate and rhythm without murmurs, rubs or gallops. ABDOMEN: Soft, nontender, normoactive bowel sounds. No guarding, no rebound. No masses appreciated. EXTREMITIES: Sensation is equal and bilateral lower extremities. Patient has 5 out of 5 strength lower trauma days. Patient has pain to palpation of the sacral area. He has pain with trunk flexion and extension. NEUROLOGICAL: Normal speech, normal gait. PSYCH: Normal mood, normal affect. SKIN: Warm, Dry, normal turgor, no rashes or lesions noted. Limitations: no limitations Course Vital Signs 09/13/19 22:19 Temperature 97.8 F Pulse Rate 117 H Respiratory 16 Rate Blood Pressure 110/62 O2 Sat by Pulse 99 Oximetry Medical Decision Making - Medical Decision Making Patient is a 24-year-old male presenting with lower back pain after falling backwards going down some stairs landing on his tailbone. Vital signs are stable. History of osteogenesis imperfecta. X-rays of the lumbar spine and sacrum and coccyx area should reveal no acute fractures dislocations. I discussed this with the patient. Patient will be given a few days of muscle relaxer to help with spasms. Patient continue with ibuprofen as needed for pain relief. He may use hot packs as well to the area. Patient will follow up with PCP as symptoms persist after one to 2 weeks. Patient is in agreement with this plan of care. Return parameters were discussed with the patient he verbalizes understanding. Disposition Clinical Impression: Low back pain Disposition: HOME SELF-CARE Condition: Stable Instructions (If sedation given, give patient instructions): Acute Low Back Pain (ED) Additional Instructions: Please return to the Emergency Department if symptoms worsen or any other concerns. Use muscle relaxers as needed. Continue with ibuprofen as needed for pain. Follow-up with PCP as symptoms persist after 1- 2 weeks. Prescriptions: Cyclobenzaprine [Flexeril] 5 mg PO BID #10 tablet Is patient prescribed a controlled substance at d/c from ED?: No Referrals: None,Stated [Primary Care Provider] - 1-2 days
--- NOTE | 2019-09-14 00:16 | XR ---
EXAMINATION TYPE: XR sacrum coccyx DATE OF EXAM: 09/14/2019 COMPARISON: NONE HISTORY: Back pain TECHNIQUE: 3 views FINDINGS: Segments have normal alignment. I see no fracture. Sacroiliac joints appear intact. Lower l umbar spine is intact. IMPRESSION: Negative sacrum and coccyx exam.
--- NOTE | 2019-09-14 00:18 | XR ---
EXAMINATION TYPE: XR lumbar spine 2 or 3V DATE OF EXAM: 09/14/2019 COMPARISON: NONE HISTORY: Back pain TECHNIQUE: 4 views FINDINGS: Segments have normal alignment. Disc spaces are fairly normal. Posterior elements are intac t. Sacroiliac joints appear intact. There is no compression fracture. IMPRESSION: Negative lumbar spine exam. No fracture seen.
[2019-09-14] MEDS ORDERED: CYCLOBENZAPRINE 5 MG TAB PO STA (00:23)
[2019-09-14 00:51] VITALS: BP 99/54; PULSE 62; TEMP 98.5
== END 2019-09-14 01:12 | disposition home or self-care (01) ==
LOC: EC 22:18
DX: M54.5 Low back pain (principal); Q78.0 Osteogenesis imperfecta; Z88.1 Allergy status to other antibiotic agents; W10.9XXA Fall (on) (from) unspecified stairs and steps, initial encounter
CPT/HCPCS: 72100; 72220; 99283; 96372; J1885

== ENCOUNTER 2021-12-14 18:20 | Emergency (ER) | payer BC, OTHER ==
[2021-12-14 18:54] VITALS: BP 135/88; PULSE 98; RESP 16; TEMP 98
[2021-12-14] MEDS ORDERED: KETOROLAC 15 MG/ML 1 ML VIAL IM STA (19:27)
[2021-12-14] MEDS ORDERED: HYDROcodone/APAP 5-325MG 1 EACH TAB PO STA (19:27)
--- NOTE | 2021-12-14 20:25 | XR ---
EXAMINATION TYPE: XR ankle complete RT, XR tibia fibula RT, XR foot complete RT DATE OF EXAM: 12/14/2021 8:12 PM INDICATION: Patient age:Male; 26 years old; Reason for study: pain, prior surgery; COMPARISON: None TECHNIQUE: Right AP lateral and oblique views of the ankle, right AP oblique and lateral views of the foot, and right AP and lateral views of the tibia and fibula. FINDINGS: There is post fixation hardware of the distal right femur with screws as well as the tibia with screw s in place. There is an acute fracture through the medial malleolus associated soft tissue swelling. There is approximately 3 mm displacement. No additional fractures identified. Hardware is intact. IMPRESSION: 1. Acute fracture of the right medial malleolus with 3 mm displacement. 2. Hardware changes of the right femur and right tibia which appear intact.
--- NOTE | 2021-12-14 21:07 | ED ---
General Adult HPI - General Chief complaint: Extremity Injury, Lower Stated complaint: R ankle injury Time Seen by Provider: 12/14/21 19:07 Source: patient, RN notes reviewed, old records reviewed Mode of arrival: ambulatory Limitations: no limitations - History of Present Illness Initial comments: Patient is a 26-year-old male with past medical history remarkable for osteogenesis imperfecta with multiple prior fractures and surgeries presents emergency department over concern for possible right ankle injury. Denies any obvious trauma or injury. Has been more active lately, and states that this morning it began swelling up on the inside aspect of his right ankle. Denies any other injuries. Is seeking an x-ray at this time. He has been ambulatory on it. Has followed up with Dr. Julian in the past. - Related Data Home Medications Medication Instructions Recorded Confirmed ARIPiprazole IM [Abilify Maintena] 400 mg IM Q30D 03/07/19 03/07/19 Previous Rx's Medication Instructions Recorded Escitalopram [Lexapro] 20 mg PO DAILY 1 Days #14 tab 03/11/19 guaiFENesin-DM 600/30MG [Mucinex 1 each PO Q12HR #10 tab.er.12h 08/20/19 Dm] Cyclobenzaprine [Flexeril] 5 mg PO BID #10 tablet 09/14/19 HYDROcodone/APAP 5-325MG [Goff 5] 1 each PO Q6HR PRN 3 Days #12 tab 12/14/21 Allergies Allergy/AdvReac Type Severity Reaction Status Date / Time cephalexin monohydrate Allergy Rash/Hives Verified 12/14/21 18:54 [From Keflex] Review of Systems ROS Statement: Those systems with pertinent positive or pertinent negative responses have been documented in the HPI. Review of Systems: CONST: Denies fever EYES: Denies blurry vision ENT: Denies nasal congestion C/V: Denies Chest pain RESP: Denies shortness of breath GI: Denies abdominal pain : Denies dysuria SKIN: Denies rash. MSK: Endorses right ankle pain. NEURO: Denies headache ROS Other: All systems not noted in ROS Statement are negative. Past Medical History Past Medical History: Osteoarthritis (OA) Additional Past Medical History / Comment(s): Osteogenesis imperfecta, migraines, multiple cellulitis bilateral legs, rods in bilat legs upper and lower legs, History of Any Multi-Drug Resistant Organisms: None Reported Past Surgical History: Adenoidectomy, Orthopedic Surgery, Tonsillectomy Additional Past Surgical History / Comment(s): bilateral legs with rods, occipital nerve blocks, Past Anesthesia/Blood Transfusion Reactions: Postoperative Nausea & Vomiting (PONV) Past Psychological History: Depression, Schizophrenia Smoking Status: Never smoker Past Alcohol Use History: None Reported Past Drug Use History: Marijuana - Past Family History Father Family Medical History: Coronary Artery Disease (CAD), Diabetes Mellitus, Hypertension, Myocardial Infarction ([place]) Additional Family Medical History / Comment(s): Father had his first Mi at the age of 33 yrs. He is bipolar. He has had Guzman's Palsey. Mother Family Medical History: Hypertension Additional Family Medical History / Comment(s): Migraines General Exam - General Exam Comments Initial Comments: General: Appears in no acute distress. HEAD: Normal with no signs of head trauma. EYES: PERRLA, EOMI, conjunctiva normal, no discharge. ENT: Hearing grossly intact, normal oropharynx. RESPIRATORY: Clear breath sounds bilaterally. C/V: Regular rate and rhythm. S1 and S2 auscultated, no edema, peripheral pulses 2+ and intact throughout ABD: Abdomen is nondistended. EXT: Reduced range of motion of the right ankle. Swelling over the medial and lateral malleoli. Neurovascularly intact throughout. Pain with inversion of the right ankle. No other obvious injuries or pain. SKIN: No rashes or lesions observed on exposed skin. NEURO: Alert and oriented 4. Neurovascularly intact throughout. Limitations: no limitations Course Vital Signs 12/14/21 18:53 Temperature 98 F Pulse Rate 98 Respiratory 16 Rate Blood Pressure 135/88 O2 Sat by Pulse 98 Oximetry Procedures - Orthopedic Splinting/Casting Injury #1 Side: right Lower Extremity Injury Location: ankle Lower Extremity Immobilizer: stirrup splint Other Orthopedic Equipment: crutches Additional Comments: Good peripheral cap refill and neurologically intact following splint. Medical Decision Making - Medical Decision Making Based on the patient's presentation and physical exam, I'm concerned for possible right ankle injury. We'll obtain x-rays of the right tib-fib, ankle, foot. He will be given Goff for pain control. He was in agreement this plan. X-rays revealed a linear fracture through the medial malleolus with 3 mm of displacement. Ankle mortise appears intact otherwise. I discussed the findings with the patient. He'll be splinted and was placed in a short leg stirrup splint. He tolerated the procedure well. Had intact pulses, cap refill, as well as sensation in the right foot after. He'll be given crutches and will be made nonweightbearing. He will follow-up with his orthopedic surgeon, Dr. Julian. He'll be given a Goff 5 prescription. He was in agreement with this plan. I will provide the patient with a prescription for Goff 5. I instructed the patient to follow up with their PCP in the next 3 days. I provided contact information for follow up with Dr. Julian. I explained that the patient should return to the emergency department if they experience any worsening symptoms. S trict return precautions were discussed with the patient. The patient expressed understanding of these instructions. I answered all questions that the patient had. The patient was discharged home in fair condition with their prescriptions and follow up information. Disposition Clinical Impression: Medial malleolar fracture, Osteogenesis imperfecta Disposition: HOME SELF-CARE Condition: Fair Instructions (If sedation given, give patient instructions): Ankle Fracture (ED) Prescriptions: HYDROcodone/APAP 5-325MG [[place] 5] 1 each PO Q6HR PRN 3 Days #12 tab PRN Reason: Pain Is patient prescribed a controlled substance at d/c from ED?: Yes When asked, does pt state using other controlled substances?: No If prescribed controlled substance>3 days was MAPS reviewed?: Prescribed <3 Days If opioid is for acute pain is fill amount 7 days or less?: Yes If Rx opioid, was Start Talking consent form obtained?: Yes Referrals: None,Stated [Primary Care Provider] - 1-2 days Bal Julian MD [STAFF PHYSICIAN] - 1-2 days Time of Disposition: 21:00
== END 2021-12-14 21:28 | disposition home or self-care (01) ==
LOC: EC 18:20
DX: S82.51XA Displaced fracture of medial malleolus of right tibia, initial encounter for closed fracture (principal); Q78.0 Osteogenesis imperfecta; F32.A Depression, unspecified; F20.9 Schizophrenia, unspecified; M19.90 Unspecified osteoarthritis, unspecified site; F12.90 Cannabis use, unspecified, uncomplicated; Z79.899 Other long term (current) drug therapy; X58.XXXA Exposure to other specified factors, initial encounter
CPT/HCPCS: 73590; 73610; 73630; 29515; 99283; 96372; J1885

== ENCOUNTER 2022-03-31 07:32 | Emergency (ER) | payer OTHER ==
[2022-03-31 07:35] VITALS: TEMP 97.9
[2022-03-31] MEDS ORDERED: methocarbamoL 500 MG TAB PO STA (07:49)
[2022-03-31] MEDS ORDERED: diazePAM 2 MG TAB PO STA (07:50)
--- NOTE | 2022-03-31 08:24 | ED ---
General Adult HPI - General Chief complaint: Neck Pain/Injury Stated complaint: Neck Pain Time Seen by Provider: 03/31/22 07:33 Source: patient, family Mode of arrival: ambulatory Limitations: no limitations - History of Present Illness Initial comments: Dictation was produced using [employer] dictation software. please excuse any grammatical, word or spelling errors. Chief Complaint: 27-year-old male with past medical history of osteogenesis imperfect and migraines presents to the ER for neck pain History of Present Illness: Patient is a 27-year-old male presents to the emergency room for neck pain. Patient states his neck stiffness has been more. With extension of the neck. Patient denies any trauma. Patient states that his pain has been stable. [place] like because his symptoms haven't improved he decided come to the ER today. His been taking his [place] at home with some improvement however his period of relief is very short-lived. The ROS documented in this emergency department record has been reviewed and confirmed by me. Those systems with pertinent positive or negative responses have been documented in the HPI. All other systems are other negative and/or noncontributory. PHYSICAL EXAM: General Impression: Alert and oriented x3, not in acute distress HEENT: Normocephalic atraumatic, extra-ocular movements intact, pupils equal and reactive to light bilaterally, mucous membranes moist, tenderness to the lateral soft tissues of the cervical spine Cardiovascular: Heart regular rate and rhythm Chest: Able to complete full sentences, no retractions, no tachypnea Abdomen: abdomen soft, non-tender, non-distended, no organomegaly Musculoskeletal: Pulses present and equal in all extremities, no peripheral e oliver Motor: no focal deficits noted Neurological: CN II-XII grossly intact, no focal motor or sensory deficits noted Skin: Intact with no visualized rashes Psych: Normal affect and mood ED course: 27-year-old male with clinical presentation consistent with cervical spasm. Vital signs upon arrival are within acceptable limits. Given patient's history of osteogenesis imperfecta computed tomography scan was ordered showing no acute processes. Patient reevaluated at bedside with slight improvement of his symptoms. Patient is agreeable for discharge with further care at home. He is advised follow up with his primary care doctor. Patient counseled on neck posture and preventative measures to alleviate and prevent cervical strain. - Related Data Home Medications Medication Instructions Recorded Confirmed ARIPiprazole IM [Guille Barnard] 400 mg IM Q30D 03/07/19 03/07/19 Previous Rx's Medication Instructions Recorded Escitalopram [Lexapro] 20 mg PO DAILY 1 Days #14 tab 03/11/19 guaiFENesin-DM 600/30MG [Mucinex 1 each PO Q12HR #10 tab.er.12h 08/20/19 Dm] Cyclobenzaprine [Flexeril] 5 mg PO BID #10 tablet 09/14/19 HYDROcodone/APAP 5-325MG [[place] 5] 1 each PO Q6HR PRN 3 Days #12 tab 12/14/21 HYDROcodone/APAP 5-325MG [[place] 1 tab PO Q6HR PRN 3 Days #12 tab 03/31/22 5-325] Allergies Allergy/AdvReac Type Severity Reaction Status Date / Time cephalexin monohydrate Allergy Rash/Hives Verified 03/31/22 07:35 [From [employer]] Review of Systems ROS Statement: Those systems with pertinent positive or pertinent negative responses have been documented in the HPI. ROS Other: All systems not noted in ROS Statement are negative. Past Medical History Past Medical History: Osteoarthritis (OA) Additional Past Medical History / Comment(s): Osteogenesis imperfecta, migraines, multiple cellulitis bilateral legs, rods in bilat legs upper and lower legs, History of Any Multi-Drug Resistant Organisms: None Reported Past Surgical History: Adenoidectomy, Orthopedic Surgery, Tonsillectomy Additional Past Surgical History / Comment(s): bilateral legs with rods, occipital nerve blocks, Past Anesthesia/Blood Transfusion Reactions: Postoperative Nausea & Vomiting (PONV) Past Psychological History: Depression, Schizophrenia Smoking Status: Never smoker Past Alcohol Use History: None Reported Past Drug Use History: Marijuana - Past Family History Father Family Medical History: Coronary Artery Disease (CAD), Diabetes Mellitus, Hypertension, Myocardial Infarction ([place]) Additional Family Medical History / Comment(s): Father had his first Mi at the age of 33 yrs. He is bipolar. He has had Guzman's Palsey. Mother Family Medical History: Hypertension Additional Family Medical History / Comment(s): Migraines General Exam Limitations: no limitations Course Vital Signs 03/31/22 07:32 Temperature 97.9 F Pulse Rate 86 Respiratory 18 Rate Blood Pressure 136/106 O2 Sat by Pulse 97 Oximetry Disposition Clinical Impression: Cervical strain Disposition: HOME SELF-CARE Condition: Good Instructions (If sedation given, give patient instructions): Cervical Strain (ED) Prescriptions: HYDROcodone/APAP 5-325MG [[place] 5-325] 1 tab PO Q6HR PRN 3 Days #12 tab PRN Reason: Severe Pain Is patient prescribed a controlled substance at d/c from ED?: Yes If prescribed controlled substance>3 days was MAPS reviewed?: Prescribed <3 Days Referrals: None,Stated [Primary Care Provider] - 1-2 days Time of Disposition: 08:47
--- NOTE | 2022-03-31 08:31 | CT ---
EXAMINATION TYPE: CT cervical spine wo con DATE OF EXAM: 03/31/2022 COMPARISON: None HISTORY: Neck pain x1 week, no injury. CT DLP: 698.4 mGycm CONTRAST: None CT of the cervical spine is performed in the axial plane at 2 mm thick sections. Min nstructed images in the coronal, and sagittal plane are reviewed on the computer. No acute fractures are evident. Vertebral body alignment is normal. Disc heights are preserved. Vertebral body heights are preserved. No spinal canal stenosis is evident No neural foraminal stenosis is evident. IMPRESSIONS: 1. Unremarkable CT cervical spine. MRI can be performed as follow-up as clinically indicated.
[2022-03-31 09:03] VITALS: BP 134/89; PULSE 84; RESP 16
== END 2022-03-31 09:03 | disposition home or self-care (01) ==
LOC: EC 07:32
DX: S16.1XXA Strain of muscle, fascia and tendon at neck level, initial encounter (principal); E11.9 Type 2 diabetes mellitus without complications; I10 Essential (primary) hypertension; Z82.49 Family history of ischemic heart disease and other diseases of the circulatory system; Z88.1 Allergy status to other antibiotic agents; X58.XXXA Exposure to other specified factors, initial encounter
CPT/HCPCS: 72125; 99283

== ENCOUNTER 2023-07-08 16:52 | Emergency (ER) | payer OTHER ==
[2023-07-08 17:09] VITALS: RESP 18; TEMP 98
--- NOTE | 2023-07-08 17:23 | ED ---
General Adult HPI - General Chief complaint: Extremity Injury, Lower Stated complaint: right foot pain Time Seen by Provider: 07/08/23 17:00 Source: patient, RN notes reviewed Mode of arrival: ambulatory Limitations: no limitations - History of Present Illness Initial comments: 28-year-old female with no significant past medical history presents to the emergency department with a chief complaint of right foot pain. Patient reports wearing a pain pill last week. He noticed a small redness to the right fifth metatarsal region. It is tender to palpation. He denies any known trauma or injury. Denies any puncture wound. Denies any fevers. He has not been taking anything for pain at home. Denies numbness, tingling, weakness in the ex tremity. - Related Data Home Medications Medication Instructions Recorded Confirmed ARIPiprazole IM [Abilify Maintena] 400 mg IM Q30D 03/07/19 03/07/19 Previous Rx's Medication Instructions Recorded Escitalopram [Lexapro] 20 mg PO DAILY 1 Days #14 tab 03/11/19 guaiFENesin-DM 600/30MG [Mucinex 1 each PO Q12HR #10 tab.er.12h 08/20/19 Dm] Cyclobenzaprine [Flexeril] 5 mg PO BID #10 tablet 09/14/19 HYDROcodone/APAP 5-325MG [[place] 5] 1 each PO Q6HR PRN 3 Days #12 tab 12/14/21 HYDROcodone/APAP 5-325MG [[place] 1 tab PO Q6HR PRN 3 Days #12 tab 03/31/22 5-325] Ibuprofen [Motrin] 800 mg PO Q6HR #30 tab 07/08/23 Allergies Allergy/AdvReac Type Severity Reaction Status Date / Time cephalexin monohydrate Allergy Rash/Hives Verified 07/08/23 16:56 [From Keflex] Review of Systems ROS Statement: Those systems with pertinent positive or pertinent negative responses have been documented in the HPI. ROS Other: All systems not noted in ROS Statement are negative. Past Medical History Past Medical History: Osteoarthritis (OA) Additional Past Medical History / Comment(s): Osteogenesis imperfecta, migraines, multiple cellulitis bilateral legs, rods in bilat legs upper and lower legs, History of Any Multi-Drug Resistant Organisms: None Reported Past Surgical History: Adenoidectomy, Orthopedic Surgery, Tonsillectomy Additional Past Surgical History / Comment(s): bilateral legs with rods, occipital nerve blocks, Past Anesthesia/Blood Transfusion Reactions: Postoperative Nausea & Vomiting (PONV) Past Psychological History: Depression, Schizophrenia Smoking Status: Never smoker Past Alcohol Use History: None Reported Past Drug Use History: Marijuana - Past Family History Father Family Medical History: Coronary Artery Disease (CAD), Diabetes Mellitus, Hypertension, Myocardial Infarction ([place]) Additional Family Medical History / Comment(s): Father had his first Mi at the age of 33 yrs. He is bipolar. He has had Guzman's Palsey. Mother Family Medical History: Hypertension Additional Family Medical History / Comment(s): Migraines General Exam - General Exam Comments Initial Comments: General: Alert, in no acute distress Head: atraumatic normocephalic. Eyes PERRL, EOMI intact, mucous membranes moist Respiratory: Lungs clear to auscultation bilaterally Cardiovascular: Heart rate regular rate and rhythm Abdominal: Soft without guarding or rebound Extremities: Normal inspection with full range of motion and normal capillary refill, right foot small area of redness to fifth metatarsal region. Tender. Full range of motion. 2+ DT/PT pulses. No crepitus noted. Neuroogic: alert and oriented 3, CN II-XII intact, able to ambulate with steady gait Skin: warm dry and intact with normal color Limitations: no limitations Course Vital Signs 07/08/23 16:53 Temperature 98.0 F Pulse Rate 86 Respiratory 18 Rate Blood Pressure 140/95 O2 Sat by Pulse 99 Oximetry Medical Decision Making - Medical Decision Making Was pt. sent in by a medical professional or institution (, PA, PRESENTATION DESIGNER, urgent care, hospital, or prison...) When possible be specific @ -[No] Did you speak to anyone other than the patient for history (EMS, parent, family, police, friend...)? What history was obtained from this source @ -[No] Did you review nursing and triage notes (agree or disagree)? Why? @ -[I reviewed and agree with nursing and triage notes] Were old charts reviewed (outside hosp., previous admission, EMS record, old EKG, old radiological studies, urgent care reports/EKG's, prison records)? Report findings @ -[No old charts were reviewed] Differential Diagnosis (chest pain, altered mental status, abdominal pain women, abdominal pain men, vaginal bleeding, weakness, fever, dyspnea, syncope, headache, dizziness, GI bleed, back pain, seizure, CVA, palpatations, mental health, musculoskeletal)? @ -[not applicable] EKG interpreted by me (3pts min.). @ -[As above] X-rays interpreted by me (1pt min.). @ Right foot x-ray does not reveal any acute fracture or dislocation CT interpreted by me (1pt min.). @ -[None done] U/S interpreted by me (1pt. min.). @ -[None done] What testing was considered but not performed or refused? (CT, X-rays, U/S, labs)? Why? @ -[None] What meds were considered but not given or refused? Why? @ -[None] Did you discuss the management of the patient with other professionals (professionals i.e. , PA, PRESENTATION DESIGNER, lab, RT, psych nurse, social worker assistant, attorney lawyer, teacher, protection officer, ed case manager)? Give summary @ -[No] Was smoking cessation discussed for >3mins.? @ -[No] Was critical care preformed (if so, how long)? @ -[No] Were there social determinants of health that impacted care today? How? (Homelessness, low income, unemployed, alcoholism, drug addiction, transportation, low edu. Level, literacy, decrease access to med. care, [facility], rehab)? @ -[No] Was there de-escalation of care discussed even if they declined (Discuss DNR or withdrawal of care, Hospice)? DNR status @ -[No] What co-morbidities impacted this encounter? (DM, HTN, Smoking, COPD, CAD, Cancer, CVA, ARF, Chemo, Hep., AIDS, mental health diagnosis, sleep apnea, morbid obesity)? @ -[None] Was patient admitted / discharged? Hospital course, mention meds given and route, prescriptions, significant lab abnormalities, going to OR and other pertinent info. @ Discharged. This is a pleasant 28-year-old male presents the emergency department with right foot pain. patient had a thorough history and physical exam performed. Physical exam is essentially unremarkable. Heart rate regular rate and rhythm, lungs are auscultation bilaterally abdomen soft nontender. Vital signs stable. Patient had laboratory and imaging studies which were unremarkable. Patient was offered pain management however he declined at the time of evaluation.. I discussed results in detail with the patient verbalized understanding all questions were addressed. Patient provided prescription for Motrin recommend close follow-up with PCP in 1-2 days. Return precautions were discussed. Patient discharged in stable condition. Discussed with Dr. Julius ALFONSO who agrees with plan of care Undiagnosed new problem with uncertain prognosis? @ -[No] Drug Therapy requiring intensive monitoring for toxicity (Heparin, Nitro, Insulin, Cardizem)? @ -[No] Were any procedures done? @ -[No] Diagnosis/symptom? @ -Right foot pain vs. Plantar Fasciitis Acute, or Chronic, or Acute on Chronic? @ -Acute Uncomplicated (without systemic symptoms) or Complicated (systemic symptoms)? @ -Uncomplicated Side effects of treatment? @ -[No] Exacerbation, Progression, or Severe Exacerbation? @ -[No] Poses a threat to life or bodily function? How? (Chest pain, [place], [place], pneumonia, PE, COPD, DKA, ARF, appy, cholecystitis, CVA, Diverticulitis, Homicidal, Suicidal, threat to staff... and all critical care pts) @ -Low likelihood Disposition Clinical Impression: Plantar fasciitis Disposition: HOME SELF-CARE Condition: Stable Additional Instructions: Please take Tylenol or Motrin for pain Apply ice or heat to the area Elevate when able Please return to the nearest emergency department if worsening pain or high fever develops Prescriptions: Ibuprofen [Motrin] 800 mg PO Q6HR #30 tab Is patient prescribed a controlled substance at d/c from ED?: No Referrals: None,Stated [Primary Care Provider] - 1-2 days Hannah Ceja DO [Doctor of Osteopathic Medicine] - 1-2 days Time of Disposition: 19:01
--- NOTE | 2023-07-08 18:39 | XR ---
EXAMINATION TYPE: XR foot complete RT DATE OF EXAM: 07/08/2023 COMPARISON: 12/14/2021 HISTORY: Foot pain TECHNIQUE: 3 view right foot FINDINGS: Joint spaces are preserved. No acute fracture or dislocation is evident. Soft tissues appea r normal. Medullary seferino and fixation within the distal tibia is evident. IMPRESSION: 1. No acute osseous abnormality right foot
[2023-07-08 20:20] VITALS: BP 128/84; PULSE 80
== END 2023-07-08 20:03 | disposition home or self-care (01) ==
LOC: EC 16:52
DX: M72.2 Plantar fascial fibromatosis (principal); F32.A Depression, unspecified; Z79.899 Other long term (current) drug therapy; Z88.1 Allergy status to other antibiotic agents
CPT/HCPCS: 99283

== ENCOUNTER 2023-07-11 20:33 | Emergency (ER) | payer OTHER ==
[2023-07-11] MEDS ORDERED: LIDOCAINE 1% INJ 10MG/ML (20 ML MDV) SQ STA (21:47)
[2023-07-11] MEDS ORDERED: SULFAMETHOX-TMP 800-160MG 1 EACH TAB PO STA (22:07)
--- NOTE | 2023-07-11 22:14 | ED ---
General Adult HPI - General Chief complaint: Extremity Problem,Nontraumatic Stated complaint: Right Foot Pain Time Seen by Provider: 07/11/23 21:50 Source: patient, RN notes reviewed, old records reviewed Mode of arrival: ambulatory Limitations: no limitations - History of Present Illness Initial comments: 28-year-old male presents for evaluation of pain on the left heel. Patient was seen in the emergency department several days prior had an x-ray which did not show any specific findings. The patient has had increased pain and has now noted some tracking erythema from the heel and a small lump on the heel. This is painful and patient is unable to bear weight on the heel numbness to walk on his toes. No fever. He has surgery on the medial aspect of his ankle in the spring. He hasn't follow-up appointment with his orthopedic surgeon. The pain and erythema are noted not located at the surgical site - Related Data Home Medications Medication Instructions Recorded Confirmed ARIPiprazole IM [Abilify Maintena] 400 mg IM Q30D 03/07/19 03/07/19 Previous Rx's Medication Instructions Recorded Escitalopram [Lexapro] 20 mg PO DAILY 1 Days #14 tab 03/11/19 guaiFENesin-DM 600/30MG [Mucinex 1 each PO Q12HR #10 tab.er.12h 08/20/19 Dm] Cyclobenzaprine [Flexeril] 5 mg PO BID #10 tablet 09/14/19 HYDROcodone/APAP 5-325MG [[place] 5] 1 each PO Q6HR PRN 3 Days #12 tab 12/14/21 HYDROcodone/APAP 5-325MG [[place] 1 tab PO Q6HR PRN 3 Days #12 tab 03/31/22 5-325] Ibuprofen [Motrin] 800 mg PO Q6HR #30 tab 07/08/23 Sulfamethox-Tmp 800-160Mg [Bactrim 1 tab PO Q12HR #20 tab 07/11/23 DS 800-160 mg] Allergies Allergy/AdvReac Type Severity Reaction Status Date / Time cephalexin monohydrate Allergy Rash/Hives Verified 07/08/23 16:56 [From Keflex] Review of Systems ROS Statement: Those systems with pertinent positive or pertinent negative responses have been documented in the HPI. ROS Other: All systems not noted in ROS Statement are negative. Past Medical History Past Medical History: Osteoarthritis (OA) Additional Past Medical History / Comment(s): Osteogenesis imperfecta, migraine s, multiple cellulitis bilateral legs, rods in bilat legs upper and lower legs, History of Any Multi-Drug Resistant Organisms: None Reported Past Surgical History: Adenoidectomy, Orthopedic Surgery, Tonsillectomy Additional Past Surgical History / Comment(s): bilateral legs with rods, occipital nerve blocks, Past Anesthesia/Blood Transfusion Reactions: Postoperative Nausea & Vomiting (PONV) Past Psychological History: Depression, Schizophrenia Smoking Status: Never smoker Past Alcohol Use History: None Reported Past Drug Use History: Marijuana - Past Family History Father Family Medical History: Coronary Artery Disease (CAD), Diabetes Mellitus, Hypertension, Myocardial Infarction ([place]) Additional Family Medical History / Comment(s): Father had his first Mi at the age of 33 yrs. He is bipolar. He has had Guzman's Palsey. Mother Family Medical History: Hypertension Additional Family Medical History / Comment(s): Migraines General Exam Limitations: no limitations General appearance: alert, in no apparent distress Head exam: Present: atraumatic, normocephalic Eye exam: Present: normal appearance, PERRL Respiratory exam: Present: normal lung sounds bilaterally. Absent: respiratory distress Cardiovascular Exam: Present: regular rate, normal rhythm GI/Abdominal exam: Present: soft. Absent: distended, tenderness Extremities exam: Present: other (1 cm abscess with central fluctuance on the lateral aspect of the right heel with surrounding erythema) Course Vital Signs 07/11/23 20:42 Temperature 97.8 F Pulse Rate 56 L Respiratory 18 Rate Blood Pressure 135/90 O2 Sat by Pulse 97 Oximetry Procedures - Incision & Drainage Consent Obtained: verbal consent Indication: Abscess Site: foot Anesthetic Used: lidocaine 1% Amount (mLs): 2 I&D Cleaning Method: Alcohol Wipe Sterile Field Used?: Yes Scalpel Used: #11 Ultrasound used: No Needle Aspiration Performed?: No Irrigation Performed?: Yes I&D Drainage Obtained: Pus Loculation Noted: probing needed to break Insertion of drain: No Culture Obtained?: No Patient Tolerated Procedure: well Medical Decision Making - Medical Decision Making Was pt. sent in by a medical professional or institution (, PA, INSURANCE PROCESSOR, urgent care, hospital, or jail...) When possible be specific @ -No Did you speak to anyone other than the patient for history (EMS, parent, family, police, friend...)? What history was obtained from this source @ -No Did you review nursing and triage notes (agree or disagree)? Why? @ -I reviewed and agree with nursing and triage notes Were old charts reviewed (outside hosp., previous admission, EMS record, old EKG, old radiological studies, urgent care reports/EKG's, jail records)? Report findings @ -No old charts were reviewed Differential Diagnosis (chest pain, altered mental status, abdominal pain women, abdominal pain men, vaginal bleeding, weakness, fever, dyspnea, syncope, headache, dizziness, GI bleed, back pain, seizure, CVA, palpatations, mental health, musculoskeletal)? @ -[Abscess, cellulitis EKG interpreted by me (3pts min.). @ -As above X-rays interpreted by me (1pt min.). @ -Reviewed x-ray from prior ER visit of the right foot, there is no visualized foreign body. CT interpreted by me (1pt min.). @ -None done U/S interpreted by me (1pt. min.). @ -None done What testing was considered but not performed or refused? (CT, X-rays, U/S, labs)? Why? @ -None What meds were considered but not given or refused? Why? @ -None Did you discuss the management of the patient with other professionals (professionals i.e. , PA, INSURANCE PROCESSOR, lab, RT, psych nurse, oncology social worker, foreign correspondent, teacher, promotions officer, heel caser)? Give summary @ -No Was smoking cessation discussed for >3mins.? @ -No Was critical care preformed (if so, how long)? @ -No Were there social determinants of health that impacted care today? How? (Homelessness, low income, unemployed, alcoholism, drug addiction, transportation, low edu. Level, literacy, decrease access to med. care, assisted, rehab)? @ -No Was there de-escalation of care discussed even if they declined (Discuss DNR or withdrawal of care, Hospice)? DNR status @ -No What co-morbidities impacted this encounter? (DM, HTN, Smoking, COPD, CAD, Cancer, CVA, ARF, Chemo, Hep., AIDS, mental health diagnosis, sleep apnea, morbid obesity)? @ -None Was patient admitted / discharged? Hospital course, mention meds given and route, prescriptions, significant lab abnormalities, going to OR and other pertinent info. @ -[28-year-old male with pain and swelling on the right heel. He has a 1 cm abscess on the lateral aspect of the heel. This does not appear to communicate with his prior surgical site. There is some surrounding erythema. X-ray did not show foreign body on previous ER visit. He does not recall a foreign body. No injury. No fever. We did discuss the possibility of incision and drainage and the patient prefers to have this procedure done. The area was anesthetized and approximately 2 mL of pus was obtained. The patient started on antibiotics and states he does have good follow-up with his orthopedic surgeon. He is instructed to return with fever, pain in the ankle itself or any worsening pain or swelling. Undiagnosed new problem with uncertain prognosis? @ -No Drug Therapy requiring intensive monitoring for toxicity (Heparin, Nitro, Insulin, Cardizem)? @ -No Were any procedures done? @ -[No] Diagnosis/symptom? @ -Heel abscess Acute, or Chronic, or Acute on Chronic? @ -[Acute Uncomplicated (without systemic symptoms) or Complicated (systemic symptoms)? @ -[default] Side effects of treatment? @ -[No] Exacerbation, Progression, or Severe Exacerbation? @ -[No] Poses a threat to life or bodily function? How? (Chest pain, [place], [place], pneumonia, PE, COPD, DKA, ARF, appy, cholecystitis, CVA, Diverticulitis, Homicidal, Suicidal, threat to staff... and all critical care pts) @ -Low risk Disposition Clinical Impression: Abscess of heel, right Disposition: HOME SELF-CARE Condition: Good Instructions (If sedation given, give patient instructions): Abscess (ED), Abscess Incision and Drainage (ED) Prescriptions: Sulfamethox-Tmp 800-160Mg [Bactrim DS 800-160 mg] 1 tab PO Q12HR #20 tab Is patient prescribed a controlled substance at d/c from ED?: No Referrals: None,Stated [Primary Care Provider] - 1-2 days Time of Disposition: 22:13
[2023-07-11 23:19] VITALS: BP 117/79; PULSE 76; RESP 21; TEMP 97.6
== END 2023-07-11 23:08 | disposition home or self-care (01) ==
LOC: EC 20:33
DX: L02.611 Cutaneous abscess of right foot (principal); F32.A Depression, unspecified; F20.9 Schizophrenia, unspecified; F12.90 Cannabis use, unspecified, uncomplicated; Z79.899 Other long term (current) drug therapy; Z88.1 Allergy status to other antibiotic agents
CPT/HCPCS: 10060; 99283; J2001

== ENCOUNTER 2023-09-03 09:47 | Emergency (ER) | payer OTHER ==
[2023-09-03 10:14] VITALS: RESP 18
[2023-09-03] MEDS ORDERED: PROCHLORPERAZINE INJ 10 MG/2 ML VIAL IM STA (10:27)
[2023-09-03] MEDS ORDERED: diphenhydrAMINE 50 MG/ML 1 ML VIAL IM STA (10:27)
--- NOTE | 2023-09-03 11:23 | CT ---
EXAMINATION TYPE: CT brain cspine wo con CT DLP: 1742.3 mGycm, Automated exposure control for dose reduction was used. DATE OF EXAM: 09/03/2023 10:55 AM COMPARISON: None. CLINICAL INDICATION:Male, 28 years old with history of pain; Neck pain TECHNIQUE: Brain: Multiple axial CT images of the brain were obtained without IV contrast. Cspine: Axial CT images from the skull base to the inferior aspect of T2 we obtained without intraven ous contrast. Coronal and sagittal reformatted images were also reviewed. FINDINGS: Brain: Extra-axial spaces: No abnormal extra-axial fluid collections. Ventricular system: Within normal limits Cerebral parenchyma: No acute intraparenchymal hemorrhage or mass effect. The hernandez-white junction is well differentiated. Cerebellum: Unremarkable. Mass effect: No evidence of midline shift. Intracranial vasculature: unremarkable Soft tissues: Normal. Calvarium/osseous structures: No depressed skull fracture. Paranasal sinuses and mastoid air cells: Clear. Visualized orbits: Orbital contents are intact. Cervical spine: Fracture: None. Osseous structures: Minimal osteophyte formation and facet joint arthropathy throughout the visualize d spine. Vertebral alignment: Within normal limits. Spinal canal/Neural Foramina: No evidence of significant spinal canal narrowing. No evidence for sign ificant neural foraminal stenosis. Neck soft tissues: Prevertebral soft tissues are within normal limits. Other: The airway is patent. The lung apices are clear. IMPRESSION: No acute intracranial process. No evidence of cervical spine fracture. Mild multilevel degenerative disc disease.
[2023-09-03] MEDS ORDERED: KETOROLAC 15 MG/ML 1 ML VIAL IM STA (11:39)
--- NOTE | 2023-09-03 11:41 | ED ---
General Adult HPI - General Chief complaint: Neck Pain/Injury Stated complaint: Neck Pain Time Seen by Provider: 09/03/23 10:15 Source: patient, RN notes reviewed Mode of arrival: ambulatory Limitations: no limitations - History of Present Illness Initial comments: 28-year-old male with no significant past medical history presents the emergency department with a chief complaint of headache and neck pain. Patient reports neck pain that is worse with movement for the last 3 days. He is also complaining of accompanying headache and photophobia. He has been taking aspirin at home with symptomatic improvement. He denies any fevers, saddle paresthesia or loss of bowel or bladder function. He has never had this happen to him before. - Related Data Home Medications Medication Instructions Recorded Confirmed ARIPiprazole IM [Abilify Maintena] 400 mg IM Q30D 03/07/19 03/07/19 Previous Rx's Medication Instructions Recorded Escitalopram [Lexapro] 20 mg PO DAILY 1 Days #14 tab 03/11/19 guaiFENesin-DM 600/30MG [Mucinex 1 each PO Q12HR #10 tab.er.12h 08/20/19 Dm] Cyclobenzaprine [Flexeril] 5 mg PO BID #10 tablet 09/14/19 HYDROcodone/APAP 5-325MG [[place] 5] 1 each PO Q6HR PRN 3 Days #12 tab 12/14/21 HYDROcodone/APAP 5-325MG [[place] 1 tab PO Q6HR PRN 3 Days #12 tab 03/31/22 5-325] Ibuprofen [Motrin] 800 mg PO Q6HR #30 tab 07/08/23 Sulfamethox-Tmp 800-160Mg [Bactrim 1 tab PO Q12HR #20 tab 07/11/23 DS 800-160 mg] Ibuprofen [Motrin] 800 mg PO Q6HR #30 tab 09/03/23 Allergies Allergy/AdvReac Type Severity Reaction Status Date / Time cephalexin monohydrate Allergy Rash/Hives Verified 09/03/23 10:10 [From Keflex] Review of Systems ROS Statement: Those systems with pertinent positive or pertinent negative responses have been documented in the HPI. ROS Other: All systems not noted in ROS Statement are negative. Past Medical History Past Medical History: Osteoarthritis (OA) Additional Past Medical History / Comment(s): Osteogenesis imperfecta, migraines, multiple cellulitis bilateral legs, rods in bilat legs upper and lower legs, History of Any Multi-Drug Resistant Organisms: None Reported Past Surgical History: Adenoidectomy, Orthopedic Surgery, Tonsillectomy Additional Past Surgical History / Comment(s): bilateral legs with rods, occipital nerve blocks, Past Anesthesia/Blood Transfusion Reactions: Postoperative Nausea & Vomiting (PONV) Past Psychological History: Depression, Schizophrenia Smoking Status: Never smoker Past Alcohol Use History: None Reported Past Drug Use History: Marijuana - Past Family History Father Family Medical History: Coronary Artery Disease (CAD), Diabetes Mellitus, Hyp ertension, Myocardial Infarction ([place]) Additional Family Medical History / Comment(s): Father had his first Mi at the age of 33 yrs. He is bipolar. He has had Guzman's Palsey. Mother Family Medical History: Hypertension Additional Family Medical History / Comment(s): Migraines General Exam - General Exam Comments Initial Comments: General: Alert, in no acute distress Head: atraumatic normocephalic. Eyes PERRL, EOMI intact, mucous membranes moist Respiratory: Lungs clear to auscultation bilaterally Cardiovascular: Heart rate regular rate and rhythm Abdominal: Soft without guarding or rebound Extremities: Normal inspection with full range of motion and normal capillary refill Neuroogic: alert and oriented 3, CN II-XII intact, able to ambulate with steady gait Skin: warm dry and intact with normal color Limitations: no limitations Course Vital Signs 09/03/23 09/03/23 10:07 11:55 Temperature 98.4 F 97.9 F Pulse Rate 89 86 Respiratory 18 18 Rate Blood Pressure 124/84 132/76 O2 Sat by Pulse 98 98 Oximetry - Reevaluation(s) Reevaluation #1: 09/03/23 11:41 Reevaluated updated results. He reports symptomatically improvement status post medications. Agreeable with the plan for discharge. Medical Decision Making - Medical Decision Making Was pt. sent in by a medical professional or institution (, PA, [employer] ARTILLERY REPAIRER, urgent care, hospital, or [facility]...) When possible be specific @ -[No] Did you speak to anyone other than the patient for history (EMS, parent, family, police, friend...)? What history was obtained from this source @ -[No] Did you review nursing and triage notes (agree or disagree)? Why? @ -[I reviewed and agree with nursing and triage notes] Were old charts reviewed (outside hosp., previous admission, EMS record, old EKG, old radiological studies, urgent care reports/EKG's, [facility] records)? Report findings @ -[No old charts were reviewed] Differential Diagnosis (chest pain, altered mental status, abdominal pain women, abdominal pain men, vaginal bleeding, weakness, fever, dyspnea, syncope, headache, dizziness, GI bleed, back pain, seizure, CVA, palpatations, mental health, musculoskeletal)? @ -[not applicable] EKG interpreted by me (3pts min.). @ -[As above] X-rays interpreted by me (1pt min.). @ -[None done] CT interpreted by me (1pt min.). @ -CT head and neck did not reveal any intracranial process or fracture dislocation. U/S interpreted by me (1pt. min.). @ -[None done] What testing was considered but not performed or refused? (CT, X-rays, U/S, labs)? Why? @ -[None] What meds were considered but not given or refused? Why? @ -[None] Did you discuss the management of the patient with other professionals (professionals i.e. , PA, [employer]ERY REPAIRER, lab, RT, psych nurse, social work case manager, cable former, teacher, transportation officer, special education case manager)? Give summary @ -[No] Was smoking cessation discussed for >3mins.? @ -[No] Was critical care preformed (if so, how long)? @ -[No] Were there social determinants of health that impacted care today? How? (Homelessness, low income, unemployed, alcoholism, drug addiction, transportation, low edu. Level, literacy, decrease access to med. care, prison, rehab)? @ -[No] Was there de-escalation of care discussed even if they declined (Discuss DNR or withdrawal of care, Hospice)? DNR status @ -[No] What co-morbidities impacted this encounter? (DM, HTN, Smoking, COPD, CAD, Cancer, CVA, ARF, Chemo, Hep., AIDS, mental health diagnosis, sleep apnea, morbid obesity)? @ -[None] Was patient admitted / discharged? Hospital course, mention meds given and route, prescriptions, significant lab abnormalities, going to OR and other pertinent info. @ -Discharged. This is a pleasant 28-year-old male who presents the emergency department with headache. Patient had a history and physical exam performed. Neck exam does not reveal any step-off. There are no focal neuro deficits noted upon exam. Patient CT imaging which was negative. Patient was provided with Compazine, Benadryl and Toradol with some improvement. He is agreeable with the plan for discharge home. He'll be discharged in stable condition. Case discussed with Dr. Fowler, ED attending who agrees with plan of care Undiagnosed new problem with uncertain prognosis? @ -[No] Drug Therapy requiring intensive monitoring for toxicity (Heparin, Nitro, Insu luci, Cardizem)? @ -[No] Were any procedures done? @ -[No] Diagnosis/symptom? @ -Headache vs. Migraine Acute, or Chronic, or Acute on Chronic? @ -Acute Uncomplicated (without systemic symptoms) or Complicated (systemic symptoms)? @ -Uncomplicated Side effects of treatment? @ -[No] Exacerbation, Progression, or Severe Exacerbation? @ -[No] Poses a threat to life or bodily function? How? (Chest pain, [place], [place], pneumonia, PE, COPD, DKA, ARF, appy, cholecystitis, CVA, Diverticulitis, Homicidal, Suicidal, threat to staff... and all critical care pts) @ -Low likelihood Disposition Clinical Impression: Strain of neck muscle Disposition: HOME SELF-CARE Condition: Stable Instructions (If sedation given, give patient instructions): Cervical Strain (ED) Additional Instructions: Please monitor symptoms closely Can take Tylenol or Motrin for neck pain Can apply ice or heat to the area Please return to the nearest emergency department if worsening pain or symptoms Prescriptions: Ibuprofen [Motrin] 800 mg PO Q6HR #30 tab Is patient prescribed a controlled substance at d/c from ED?: No Referrals: None,Stated [Primary Care Provider] - 1-2 days Forms: Area PCPs Time of Disposition: 11:42
[2023-09-03 12:10] VITALS: BP 132/76; PULSE 86; TEMP 97.9
== END 2023-09-03 12:06 | disposition home or self-care (01) ==
LOC: EC 09:47
DX: S16.1XXA Strain of muscle, fascia and tendon at neck level, initial encounter (principal); F32.A Depression, unspecified; F12.90 Cannabis use, unspecified, uncomplicated; Z88.8 Allergy status to other drugs, medicaments and biological substances; X58.XXXA Exposure to other specified factors, initial encounter
CPT/HCPCS: 72125; 70450; 99284; 96372 ×3; J1200; J0780; J1885

== ENCOUNTER 2024-02-09 09:09 | Emergency (ER) | payer OTHER ==
[2024-02-09 09:27] VITALS: RESP 18
--- NOTE | 2024-02-09 09:52 | XR ---
EXAMINATION TYPE: XR foot complete LT DATE OF EXAM: 02/09/2024 9:46 AM CLINICAL INDICATION:Male, 28 years old with history of pain; [facility] COMPARISON: None TECHNIQUE: XR foot complete LT examined in the AP, oblique, and lateral projections. FINDINGS/IMPRESSION: 1. Minimally displaced fracture of the base of the fifth metatarsal. There is associated soft tissue swelling. 2. Fixation hardware in the distal tibia appears intact.
--- NOTE | 2024-02-09 10:04 | ED ---
Extremity Problem HPI - General Chief complaint: Extremity Problem,Nontraumatic Stated complaint: L Foot Injury Time Seen by Provider: 02/09/24 09:28 Source: patient, RN notes reviewed Mode of arrival: ambulatory Limitations: no limitations - History of Present Illness Initial comments: 28-year-old male presents emergency department chief complaint left foot pain. Patient states he stepped awkwardly injuring his left foot. Patient has osteogenesis imperfecta in which she has had multiple fractures in the past. Patient states he has bruising, swelling, pain. - Related Data Home Medications Medication Instructions Recorded Confirmed ARIPiprazole IM [Abilify Maintena] 400 mg IM Q30D 03/07/19 03/07/19 Previous Rx's Medication Instructions Recorded Escitalopram [Lexapro] 20 mg PO DAILY 1 Days #14 tab 03/11/19 guaiFENesin-DM 600/30MG [Mucinex 1 each PO Q12HR #10 tab.er.12h 08/20/19 Dm] Cyclobenzaprine [Flexeril] 5 mg PO BID #10 tablet 09/14/19 HYDROcodone/APAP 5-325MG [[place] 5] 1 each PO Q6HR PRN 3 Days #12 tab 12/14/21 HYDROcodone/APAP 5-325MG [[place] 1 tab PO Q6HR PRN 3 Days #12 tab 03/31/22 5-325] Ibuprofen [Motrin] 800 mg PO Q6HR #30 tab 07/08/23 Sulfamethox-Tmp 800-160Mg [Bactrim 1 tab PO Q12HR #20 tab 07/11/23 DS 800-160 mg] Ibuprofen [Motrin] 800 mg PO Q6HR #30 tab 09/03/23 Allergies Allergy/AdvReac Type Severity Reaction Status Date / Time cephalexin monohydrate Allergy Rash/Hives Verified 02/09/24 09:27 [From Keflex] Review of Systems ROS Statement: Those systems with pertinent positive or pertinent negative responses have been documented in the HPI. ROS Other: All systems not noted in ROS Statement are negative. Past Medical History Past Medical History: Osteoarthritis (OA) Additional Past Medical History / Comment(s): Osteogenesis imperfecta, migraines, multiple cellulitis bilateral legs, rods in bilat legs upper and lower legs, History of Any Multi-Drug Resistant Organisms: None Reported Past Surgical History: Adenoidectomy, Orthopedic Surgery, Tonsillectomy Additional Past Surgical History / Comment(s): bilateral legs with rods, occipital nerve blocks, Past Anesthesia/Blood Transfusion Reactions: Postoperative Nausea & Vomiting (PONV) Past Psychological History: Depression, Schizophrenia Smoking Status: Never smoker Past Alcohol Use History: None Reported Past Drug Use History: Marijuana - Past Family History Father Family Medical History: Coronary Artery Disease (CAD), Diabetes Mellitus, Hypertension, Myocardial Infarction ([place]) Additional Family Medical History / Comment(s): Father had his first Mi at the age of 33 yrs. He is bipolar. He has had Guzman's Palsey. Mother Family Medical History: Hypertension Additional Family Medical History / Comment(s): Migraines General Exam Limitations: no limitations General appearance: alert, in no apparent distress Neck exam: Present: normal inspection, full ROM. Absent: tenderness, meningismus, lymphadenopathy Respiratory exam: Present: normal lung sounds bilaterally. Absent: respiratory distress, wheezes, rales, rhonchi, stridor Cardiovascular Exam: Present: regular rate, normal rhythm, normal heart sounds. Absent: systolic murmur, diastolic murmur, rubs, gallop, clicks Extremities exam: Present: other (Left foot diffuse swelling mid to lateral portion, tenderness palpation neurovascular intact no tenderness proximal) Course Vital Signs 02/09/24 02/09/24 09:25 10:25 Temperature 98 F 98.1 F Pulse Rate 72 76 Respiratory 18 18 Rate Blood Pressure 121/86 126/80 O2 Sat by Pulse 98 99 Oximetry Medical Decision Making - Medical Decision Making Was pt. sent in by a medical professional or institution (, PA, INDUSTRIAL GAS FITTER, urgent care, hospital, or custodial...) When possible be specific @ -No Did you speak to anyone other than the patient for history (EMS, parent, family, police, friend...)? What history was obtained from this source @ -No Did you review nursing and triage notes (agree or disagree)? Why? @ -I reviewed and agree with nursing and triage notes Were old charts reviewed (outside hosp., previous admission, EMS record, old EKG, old radiological studies, urgent care reports/EKG's, custodial records)? Report findings @ -No old charts were reviewed Differential Diagnosis (chest pain, altered mental status, abdominal pain women, abdominal pain men, vaginal bleeding, weakness, fever, dyspnea, syncope, headache, dizziness, GI bleed, back pain, seizure, CVA, palpatations, mental health, musculoskeletal)? @ -Foot sprain, foot fracture EKG interpreted by me (3pts min.). @ -None X-rays interpreted by me (1pt min.). @ -X-ray left foot shows evidence of fifth metatarsal fracture CT interpreted by me (1pt min.). @ -None done U/S interpreted by me (1pt. min.). @ -None done What testing was considered but not performed or refused? (CT, X-rays, U/S, labs)? Why? @ -None What meds were considered but not given or refused? Why? @ -None Did you discuss the management of the patient with other professionals (professionals i.e. , PA, INDUSTRIAL GAS FITTER, lab, RT, psych nurse, social media campaign manager, communication instructor, teacher, retail loss prevention officer, case briefer)? Give summary @ -No Was smoking cessation discussed for >3mins.? @ -No Was critical care preformed (if so, how long)? @ -No Were there social determinants of health that impacted care today? How? (Homelessness, low income, unemployed, alcoholism, drug addiction, transportation, low edu. Level, literacy, decrease access to med. care, long-term, rehab)? @ -No Was there de-escalation of care discussed even if they declined (Discuss DNR or withdrawal of care, Hospice)? DNR status @ -No What co-morbidities impacted this encounter? (DM, HTN, Smoking, COPD, CAD, Cancer, CVA, ARF, Chemo, Hep., AIDS, mental health diagnosis, sleep apnea, morbid obesity)? @ -None Was patient admitted / discharged? Hospital course, mention meds given and route, prescriptions, significant lab abnormalities, going to OR and other pe rtinent info. @ -Discharge patient had orthopedic cast boot in which patient will continue to wear this and remain nonweightbearing with crutches and follow-up with orthopedics. Undiagnosed new problem with uncertain prognosis? @ -No Drug Therapy requiring intensive monitoring for toxicity (Heparin, Nitro, Insulin, Cardizem)? @ -No Were any procedures done? @ -No Diagnosis/symptom? @ -Left foot fracture Acute, or Chronic, or Acute on Chronic? @ -Acute Uncomplicated (without systemic symptoms) or Complicated (systemic symptoms)? @ -Uncomplicated Side effects of treatment? @ -No Exacerbation, Progression, or Severe Exacerbation? @ -No Poses a threat to life or bodily function? How? (Chest pain, [place], [place], pneumonia, PE, COPD, DKA, ARF, appy, cholecystitis, CVA, Diverticulitis, Homicidal, Suici j carlos, threat to staff... and all critical care pts) @ -No Disposition Clinical Impression: Fracture of fifth metatarsal bone of left foot Disposition: HOME SELF-CARE Condition: Stable Instructions (If sedation given, give patient instructions): Foot Fracture in Adults (ED) Additional Instructions: Please return to the Emergency Department if symptoms worsen or any other concerns. Is patient prescribed a controlled substance at d/c from ED?: No Referrals: Nelda Rodriguez MD [Primary Care Provider] - 1-2 days Lan Najera MD [STAFF PHYSICIAN] - 1-2 days Time of Disposition: 10:04
[2024-02-09] MEDS: ACET/COD 300 MG/30 MG STARTER PACK 6 TAB BTL PO STA (10:23)
[2024-02-09 10:27] VITALS: BP 126/80; PULSE 76; TEMP 98.1
== END 2024-02-09 10:27 | disposition home or self-care (01) ==
LOC: EC 09:09
DX: S92.352A Displaced fracture of fifth metatarsal bone, left foot, initial encounter for closed fracture (principal); Z88.1 Allergy status to other antibiotic agents; X50.1XXA Overexertion from prolonged static or awkward postures, initial encounter
CPT/HCPCS: 99283

== ENCOUNTER 2025-02-19 14:09 | Emergency (ER) | payer OTHER ==
[2025-02-19 14:21] VITALS: RESP 18
--- NOTE | 2025-02-19 14:37 | ED ---
Headache HPI - General Chief Complaint: Headache Stated Complaint: Headache Time Seen by Provider: 02/19/25 14:21 Source: patient, RN notes reviewed Mode of arrival: ambulatory Limitations: no limitations - History of Present Illness Initial Comments: 30-year-old male with history of migraine headaches presenting with complaints of migraine over the past 5 days. He states that the pain is mostly located in the front of his forehead described as a band type pressure sensation. He endorses associated photophobia, phonophobia, and nausea. Patient states that he had emesis on Saturday and Saturday however this is resolved but he still feels mildly nauseated. He denies fevers, chills, neck pain, cough, rhinorrhea, congestion, difficulty breathing. Has not taken any medications today to alleviate symptoms. States he does not follow with a neurologist. - Related Data Home Medications Medication Instructions Recorded Confirmed ARIPiprazole IM [Abilify Maintena] 400 mg IM Q30D 03/07/19 03/07/19 Previous Rx's Medication Instructions Recorded Escitalopram [Lexapro] 20 mg PO DAILY 1 Days #14 tab 03/11/19 guaiFENesin-DM 600/30MG [Mucinex 1 each PO Q12HR #10 tab.er.12h 08/20/19 Dm] Cyclobenzaprine [Flexeril] 5 mg PO BID #10 tablet 09/14/19 HYDROcodone/APAP 5-325MG [Garland 5] 1 each PO Q6HR PRN 3 Days #12 tab 12/14/21 HYDROcodone/APAP 5-325MG [Garland 1 tab PO Q6HR PRN 3 Days #12 tab 03/31/22 5-325] Ibuprofen [Motrin] 800 mg PO Q6HR #30 tab 07/08/23 Sulfamethox-Tmp 800-160Mg [Bactrim 1 tab PO Q12HR #20 tab 07/11/23 DS 800-160 mg] Ibuprofen [Motrin] 800 mg PO Q6HR #30 tab 09/03/23 Ketorolac [Toradol] 10 mg PO Q8HR #15 tab 02/19/25 Allergies Allergy/AdvReac Type Severity Reaction Status Date / Time cephalexin monohydrate Allergy Rash/Hives Verified 02/19/25 14:21 [From [facility]] Review of Systems ROS Statement: Those systems with pertinent positive or pertinent negative responses have been documented in the HPI. ROS Other: All systems not noted in ROS Statement are negative. Past Medical History Past Medical History: Osteoarthritis (OA) Additional Past Medical History / Comment(s): Osteogenesis imperfecta, migraines, multiple cellulitis bilateral legs, rods in bilat legs upper and lower legs, History of Any Multi-Drug Resistant Organisms: None Reported Past Surgical History: Adenoidectomy, Orthopedic Surgery, Tonsillectomy Additional Past Surgical History / Comment(s): bilateral legs with rods, occipital nerve blocks, Past Anesthesia/Blood Transfusion Reactions: Postoperative Nausea & Vomiting (PONV) Past Psychological History: Depression, Schizophrenia Smoking Status: Current every day smoker, Vaper Past Alcohol Use History: None Reported Past Drug Use History: Marijuana - Past Family History Father Family Medical History: Coronary Artery Disease (CAD), Diabetes Mellitus, Hypertension, Myocardial Infarction (NV) Additional Family Medical History / Comment(s): Father had his first Mi at the age of 33 yrs. He is bipolar. He has had Guzman's Palsey. Mother Family Medical History: Hypertension Additional Family Medical History / Comment(s): Migraines General Exam Limitations: no limitations General appearance: alert, in no apparent distress Eye exam: Present: normal appearance, PERRL, EOMI. Absent: scleral icterus, co njunctival injection, periorbital swelling ENT exam: Present: normal exam, mucous membranes moist Neck exam: Present: normal inspection. Absent: tenderness, meningismus, lymphadenopathy Respiratory exam: Present: normal lung sounds bilaterally. Absent: respiratory distress, wheezes, rales, rhonchi, stridor Cardiovascular Exam: Present: regular rate, normal rhythm, normal heart sounds. Absent: systolic murmur, diastolic murmur, rubs, gallop, clicks GI/Abdominal exam: Present: soft, normal bowel sounds. Absent: distended, tenderness, guarding, rebound, rigid Extremities exam: Present: normal inspection, full ROM, normal capillary refill. Absent: tenderness, pedal edema, joint swelling, calf tenderness Neurological exam: Present: alert, oriented X3, CN II-XII intact Course Vital Signs 02/19/25 02/19/25 14:17 16:14 Temperature 98.5 F 98.2 F Pulse Rate 98 90 Respiratory 18 18 Rate Blood Pressure 111/82 112/79 O2 Sat by Pulse 99 99 Oximetry Medical Decision Making - Medical Decision Making Was pt. sent in by a medical professional or institution (, [facility], UNEMPLOYMENT EXAMINER, urgent care, hospital, or [place] [facility] facility...) When possible be specific @ -No Did you speak to anyone other than the patient for history (EMS, parent, family, police, friend...)? What history was obtained from this source @ -No Did you review nursing and triage notes (agree or disagree)? Why? @ -I reviewed and agree with nursing and triage notes Were old charts reviewed (outside hosp., previous admission, EMS record, old EKG, old radiological studies, urgent care reports/EKG's, [place] health [facility] facility records)? Report findings @ -No old charts were reviewed Differential Diagnosis (chest pain, altered mental status, abdominal pain women, abdominal pain men, vaginal bleeding, weakness, fever, dyspnea, syncope, headache, dizziness, GI bleed, back pain, seizure, CVA, palpatations, mental health, musculoskeletal)? @ -Differential Headache: Migraine, tension, cluster, carbon monoxide, central venous thrombosis, pension karma temporal arteritis, acute closure glaucoma, intercranial hemorrhage, mastoiditis, sinusitis, head injury, this is not meant to be an all-inclusive list. EKG interpreted by me (3pts min.). @ -None X-rays interpreted by me (1pt min.). @ -None done CT interpreted by me (1pt min.). @ -None done U/S interpreted by me (1pt. min.). @ -None done What testing was considered but not performed or refused? (CT, X-rays, U/S, labs)? Why? @ -CT imaging was considered but deferred as patient states that this symptoms are similar to when he had migraines in the past. What meds were considered but not given or refused? Why? @ -None Did you discuss the management of the patient with other professionals (professionals i.e. [facility] Wallis, UNEMPLOYMENT EXAMINER, lab, RT, psych nurse, pediatric social worker, pipe fitter ammonia, teacher, staff antisubmarine officer, machine adjuster leader case trim)? Give summary @ -No Was smoking cessation discussed for >3mins.? @ -No Was critical care preformed (if so, how long)? @ -No Were there social determinants of health that impacted care today? How? (Homelessness, low income, unemployed, alcoholism, drug addiction, transportation, low edu. Level, literacy, decrease access to med. care, long-term, rehab)? @ -No Was there de-escalation of care discussed even if they declined (Discuss DNR or withdrawal of care, Hospice)? DNR status @ -No What co-morbidities impacted this encounter? (DM, HTN, Smoking, COPD, CAD, Cancer, CVA, ARF, Chemo, Hep., AIDS, mental health diagnosis, sleep apnea, morbid obesity)? @ -None Was patient admitted / discharged? Hospital course, mention meds given and route, prescriptions, significant lab abnormalities, going to OR and other pertinent info. @ -Discharge. 30-year-old male presenting with migraine headache. neurological examination completed with no acute deficits. Patient provided with migraine cocktail. Patient is feeling better and is stable for discharge. Case discussed with Dr. Hu Undiagnosed new problem with uncertain prognosis? @ -No Drug Therapy requiring intensive monitoring for toxicity (Heparin, Nitro, Insulin, Cardizem)? @ -No Were any procedures done? @ -No Diagnosis/symptom? @ -Migraine headache Acute, or Chronic, or Acute on Chronic? @ -Acute Uncomplicated (without systemic symptoms) or Complicated (systemic symptoms)? @ -Uncomplicated Side effects of treatment? @ -No Exacerbation, Progression, or Severe Exacerbation? @ -No Poses a threat to life or bodily function? How? (Chest pain, USA, NV, pneumonia, PE, COPD, DKA, ARF, appy, cholecystitis, CVA, Diverticulitis, Homicidal, Suicidal, threat to staff... and all critical care pts) @ -No Disposition Clinical Impression: Migraine headache Disposition: HOME SELF-CARE Condition: Good Instructions (If sedation given, give patient instructions): Migraine Headache (ED) Additional Instructions: Please return to the Emergency Department if symptoms worsen or any other concerns. Prescriptions: Ketorolac [Toradol] 10 mg PO Q8HR #15 tab Is patient prescribed a controlled substance at d/c from ED?: No Referrals: Nelda Rodriguez MD [Primary Care Provider] - 1-2 days Time of Disposition: 15:45
[2025-02-19] MEDS: SODIUM CHLORIDE 0.9% 1,000 ML IV STA (15:02)
[2025-02-19] MEDS: KETOROLAC 15 MG/ML 1 ML VIAL IVP STA (15:03)
[2025-02-19] MEDS: diphenhydrAMINE 50 MG/ML 1 ML VIAL IVP STA (15:04)
[2025-02-19] MEDS: methylPREDNISolone SOD SUCCI 125 MG/2 ML VIAL IV STA (15:07)
[2025-02-19] MEDS: METOCLOPRAMIDE 5 MG/ML 2 ML VIAL IVP STA (15:09)
[2025-02-19] MEDS: ACETAMINOPHEN TAB 500 MG TAB PO STA (16:12)
[2025-02-19 16:16] VITALS: BP 112/79; PULSE 90; TEMP 98.2
== END 2025-02-19 16:16 | disposition home or self-care (01) ==
LOC: EC 14:09
DX: G43.909 Migraine, unspecified, not intractable, without status migrainosus (principal); F17.290 Nicotine dependence, other tobacco product, uncomplicated; Z88.1 Allergy status to other antibiotic agents
CPT/HCPCS: 99283; 96374; 96375; 96361; J1200; J2765; J1885; J2919